=== PATIENT | male | born 1945 | race African-American/Black ===

== ENCOUNTER 2017-01-17 22:48 | Emergency (ER) | payer BC, MEDICARE ==
[2017-01-17 23:44] LABS: #Eosinphils 0.1 thou/uL (0.0-0.7); #Lymphocytes 0.8 thou/uL (1.20-3.40); #Monocytes 0.5 thou/uL (0.11-0.59); #Neutrophils 2.7 thou/uL (1.40-6.50); %Basophils 0.2 % (0.0-1.0); %Eosinophils 1.4 % (0.0-10.0); %Lymphocytes 20.4 % (21.0-51.0); %Monocytes 12.9 % (0.0-10.0); Hematocrit 35.1 % (42.0-52.0); Mean Platelet Volume 5.3 fL (7.4-10.4); Red Blood Cell (RBC) Count 3.46 mill/uL (4.70-6.10); White Blood Cell (WBC) Count 4.1 thou/uL (4.8-10.8)
[2017-01-17 23:52] LABS: Prothrombin Time 24.8 SEC (12.0-14.7)
[2017-01-18 00:04] LABS: Bilirubin Negative (Negative); Blood, Urine Large (Negative); Glucose, Urine (Dipstick) Negative (Negative); Ketone, Urine Negative (Negative); Nitrite Negative (Negative); Protein, Urine (Dipstick) Negative (Neg-Trace); Urobilinogen 0.2 mg/dL (0.2-1.0)
[2017-01-18 00:06] LABS: ALT (SGPT) 13 U/L (8-55); AST (SGOT) 21 U/L (5-34); Alkaline Phosphatase 109 U/L (40-150); Anion Gap 11 mmol/L (10-20); BUN (Urea Nitrogen) 7 mg/dL (8.4-25.7); Bilirubin, Total 0.4 mg/dL (0.2-1.2); Calc. Creatinine Clearance 0 mL/min (70-130); Calcium 9.2 mg/dL (7.8-10.44); Carbon Dioxide 27 mmol/L (23-31); Chloride 95 mmol/L (98-107); Estimated GFR-MDRD Greater than 90; Globulin 3.6 g/dL (2.4-3.5); Protein, Total 7.3 g/dL (5.8-8.1)
[2017-01-18 00:07] LABS: Bacteria/HPF None Seen HPF (None Seen); Hyaline Casts/LPF 0-3 HYALINE CAST LPF (0-3 Hyaline); Squamous Epithelial None Seen HPF (0-3); WBC/HPF None Seen HPF (0-3)
== END 2017-01-18 01:33 | disposition home or self-care (01) ==
LOC: ERS 22:48
DX: R31.9 Hematuria, unspecified (principal); I48.91 Unspecified atrial fibrillation; E78.5 Hyperlipidemia, unspecified; I10 Essential (primary) hypertension; I20.9 Angina pectoris, unspecified; F41.9 Anxiety disorder, unspecified; F32.9 Major depressive disorder, single episode, unspecified; Z86.718 Personal history of other venous thrombosis and embolism
CPT/HCPCS: 36415; 80053; 81003; 81015; 85025; 85610; 85730; 99283

== ENCOUNTER 2017-11-12 18:36 | Inpatient (IN) | payer OTHER, MEDICARE ==
[2017-11-12 23:48] LABS: #Lymphocytes 0.8 thou/uL (1.20-3.40); #Neutrophils 5.6 thou/uL (1.40-6.50); %Basophils 0.1 % (0.0-1.0); %Eosinophils 0.2 % (0.0-10.0); %Monocytes 13.8 % (0.0-10.0); %Neutrophils 74.9 % (42.0-75.0); Hemoglobin 11.2 g/dL (14.0-18.0); Mean Corpuscular HGB CONC 33.3 g/dL (32.0-36.0); Mean Corpuscular Hemoglobin 31.3 pg (27.0-31.0); Mean Corpuscular Volume 93.8 fL (78.0-98.0); Mean Platelet Volume 5.1 fL (7.4-10.4); Platelet Count 270 thou/uL (130-400); RBC Distribution Width 12.4 % (11.5-14.5); Red Blood Cell (RBC) Count 3.57 mill/uL (4.70-6.10); White Blood Cell (WBC) Count 7.5 thou/uL (4.8-10.8)
[2017-11-12 23:56] LABS: INR-International Normal Ratio 3.7; PTT 56.7 SEC (22.9-36.1); Prothrombin Time 36.3 SEC (12.0-14.7)
[2017-11-13 00:14] LABS: ALT (SGPT) 25 U/L (8-55); AST (SGOT) 67 U/L (5-34); Alkaline Phosphatase 389 U/L (40-150); Anion Gap 16 mmol/L (10-20); BUN (Urea Nitrogen) 11 mg/dL (8.4-25.7); Bilirubin, Total 1.2 mg/dL (0.2-1.2); Calc. Creatinine Clearance 0 mL/min (70-130); Calcium 9.9 mg/dL (7.8-10.44); Carbon Dioxide 24 mmol/L (23-31); Chloride 92 mmol/L (98-107); Estimated GFR-MDRD Greater than 90; Globulin 4.7 g/dL (2.4-3.5); Glucose 108 mg/dL (80-115); Potassium 4.5 mmol/L (3.5-5.1); Protein, Total 8.7 g/dL (5.8-8.1); Sodium 127 mmol/L (136-145)
[2017-11-13 00:19] LABS: CKMB 0.5 ng/mL (0-6.6); Troponin I Less than 0.010 ng/mL (< 0.028)
[2017-11-13] MEDS ORDERED: Morphine 4 MG/ML VIAL ONE (00:20)
[2017-11-13] MEDS ORDERED: Ondansetron ODT 4 MG TAB ONE (00:20)
[2017-11-13] MEDS ORDERED: Sodium Chloride 0.9% 100 ML ONE (00:29)
[2017-11-13] MEDS ORDERED: Piperacillin/Tazobactam 4.5 GM VIAL ONE (00:29)
[2017-11-13 01:46] LABS: Bilirubin Negative (Negative); Blood, Urine Moderate (Negative); Clarity CLEAR (Clear); Glucose, Urine (Dipstick) Negative (Negative); Leukocyte Negative (Negative); Nitrite Negative (Negative); Protein, Urine (Dipstick) Negative (Neg-Trace); pH, Urine 6.5 (5.0-9.0)
[2017-11-13 01:48] LABS: Bacteria/HPF None Seen HPF (None Seen); Hyaline Casts/LPF 0-3 HYALINE CAST LPF (0-3 Hyaline); Pathc Cast-AUWi Flag 0.14 (0-2.49); Squamous Epithelial 0-3 HPF (0-3); WBC/HPF None Seen HPF (0-3)
[2017-11-13 05:30] VITALS: BMI 24.2
[2017-11-13] MEDS ORDERED: Ondansetron HCl/PF 4 MG/2 ML Vial IVP PRN (05:45)
[2017-11-13] MEDS ORDERED: Acetaminophen 325 MG TAB PO PRN ×2 (05:45→18:19)
[2017-11-13] MEDS ORDERED: Ondansetron ODT 4 MG TAB SL PRN (05:45)
[2017-11-13 08:32] LABS: Prothrombin Time 41.2 SEC (12.0-14.7)
[2017-11-13 08:49] LABS: INR-International Normal Ratio 4.3
[2017-11-13] MEDS ORDERED: VANCOMYCIN IVPB PRN (09:28)
--- NOTE | 2017-11-13 09:52 | PDOC.EVN ---
Event Note - Event Note Event Note: H&P [id number]
--- NOTE | 2017-11-13 09:54 | CT ---
PRELIMINARY REPORT/[facility]/EMERGENTY AFTER-HOURS PROCEDURE CT Abdomen and Pelvis With Intravenous Contrast CLINICAL HISTORY: 72 years old, male; Pain; Abdominal pain; HX a-fib, prostate ca, HX RLE DVT, IVC filter, chronic coum cami use presents for continued bleeding from injection site. Pt received injection earlier today, thompson s had a steady ooze of blood from the site since. TECHNIQUE: Axial computed tomography images of the abdomen and pelvis with intravenous contrast. Coronal reformatted images were created and reviewed. COMPARISON: No relevant prior studies available. FINDINGS: Lung bases: Unremarkable. No mass. No consolidation. Heart: Trace anterior pericardial fluid. ABDOMEN: Liver: Unremarkable. No mass. Gallbladder and bile ducts: Unremarkable. No calcified stones. No ductal dilation. Pancreas: Unremarkable. No mass. No ductal dilation. Spleen: Unremarkable. No splenomegaly. Adrenals: Unremarkable. No mass. Kidneys and ureters: Left renal cyst. No hydronephrosis. Stomach and bowel: Unremarkable. No obstruction. No mucosal thickening. PELVIS: Appendix: No findings to suggest acute appendicitis. Bladder: Unremarkable. No mass. Reproductive: Prostate gland is normal in size. ABDOMEN and PELVIS: Intraperitoneal space: Unremarkable. No free air. No significant fluid collection. Bones/joints: Scattered blastic lesions within the skeleton consistent with metastatic disease in thi s patient with history of prostate carcinoma. No acute fracture. No dislocation. Soft tissues: Gynecomastia. Vasculature: IVC filter. No abdominal aortic aneurysm. Lymph nodes: Unremarkable. No enlarged lymph nodes. Other findings: No focal hematoma. IMPRESSION: 1. No focal hematoma. 2. Scattered blastic lesions within the skeleton consistent with metastatic disease in this patient w ith history of prostate carcinoma. Thank you for allowing us to participate in the care of your patient. Dictated and Authenticated by: Mike Sanchez MD 11/13/2017 3:28 AM Central Time ([place] & [place]) FINAL REPORT EMERGENT AFTER HOURS CT ABDOMEN AND PELVIS WITH IV CONTRAST: DATE: 11/13/17. HISTORY: Abdominal pain. History of prostate cancer. History of right lower extremity DVT. COMPARISON: 12/21/15. IMPRESSION: 1. Worsening osseous metastatic disease with greater involvement of the pelvis with scattered sclero tic osseous metastatic lesion within the spine which have also increased. 2. Bilateral gynecomastia. 3. Patchy parenchymal changes of right lung base, probably related to atelectasis. 4. Left renal cyst stable from prior exam. 5. Inferior vena cava filter unchanged in position. 6. Vascular calcifications of abdominal aorta. 7. Trace pericardial effusion versus pericardial thickening. 8. No acute intraabdominal findings are seen. 9. Findings are in agreement with the preliminary report by [facility]. POS: [facility]
[2017-11-13 10:54] LABS: Anion Gap 11 mmol/L (10-20); BUN (Urea Nitrogen) 8 mg/dL (8.4-25.7); Calc. Creatinine Clearance 86 mL/min (70-130); Carbon Dioxide 23 mmol/L (23-31); Chloride 100 mmol/L (98-107); Estimated GFR-MDRD Greater than 90; Glucose 93 mg/dL (80-115); Sodium 130 mmol/L (136-145)
[2017-11-13] MEDS: Sodium Chloride 0.9% 1,000 ML IV SCH (11:00)
[2017-11-13] MEDS ORDERED: ISOVUE-370 76%-LOCM 1 ML ONE (11:19)
--- NOTE | 2017-11-13 11:30 | HP ---
PRIMARY CARE PHYSICIAN: Dr. Robbin San. CHIEF COMPLAINT: Right lower leg pain. HISTORY OF PRESENT ILLNESS: This is a 72-year-old male with a known history of right lower extremity deep vein thrombosis status post IVC filter on Coumadin, who presents with a chief complaint of righ t thigh and knee pain along with secondary complaints of temperature and continued oozing from abdomi nal injection site. At the time of my evaluation, the patient's primary concern is his left thigh pain. He states that h e fell approximately 2 weeks ago and has been persistently painful, described as an aching sensation that waxes and wanes and is worse with any type of movement. He endorses pain directly in his thigh without involvement of his hip or his knee. The pain is most improved at rest and worse with any sor t of movement in any direction. The patient also endorses having some increased bleeding from an injection site, which he denies havi ng had any prior similar issues before. He also recalls a "high" INR for approximately the last 3-4 weeks. He denies any prior issues with persistently elevated INRs and denies any change in his home medication regimen system. The patient is noted to have fever of 101, 101.9 noted in the ER report. However, he denies any subjective fevers and chills. In the emergency department, it appears that he underwent a CT of the abdomen and pelvis due to findi ngs of abdominal tenderness on ER physical examination. He has also been given Zosyn and vancomycin in the emergency department. REVIEW OF SYSTEMS: Constitutional: No significant weight gain or weight loss over the last 2 months . No subjective fevers or chills, although he had an observed fever in the emergency department up t o 101.9 per the ER record. HEENT: No new headaches, dizziness, lightheadedness. Cardiovascular: D enies any chest pain, chest pressure, diaphoretic episodes, left-sided arm numbness or tingling. Res piratory: Denies any shortness of breath, cough, congestion, difficulty breathing. Gastrointestinal : Denies any nausea, vomiting, abdominal pain. Denies any issues with diarrhea. Genitourinary: De nies any dysuria, changes in urinary frequency, quality, color or quantity. Musculoskeletal: As not ed above. The remainder of the review of systems otherwise negative. PAST MEDICAL HISTORY: As per above, 1. Right lower extremity deep venous thrombosis with IVC filter to prevent further blood clots. 2. History of prostate cancer treated with radiation, last treatment in 2011. 3. Atrial fibrillation. 4. Hyperlipidemia. 5. Coronary artery disease. 6. Hypertension. 7. Anxiety and depression. 8. Status post IVC filter placement. HOME MEDICATIONS: Seems to include simvastatin 20 mg p.o. daily, doxazosin 2 mg p.o. daily, warfarin 5 mg p.o. daily, omeprazole 40 mg p.o. daily, mirtazapine 30 mg p.o. daily at bedtime, alprazolam 0. 25 mg p.o. t.i.d. ALLERGIES: Include CODEINE, which causes hives. PHYSICAL EXAMINATION: VITAL SIGNS: Notable for temperature in the Emergency Department, there was one documented at 101.9 and another documented at 101.4. GENERAL: The patient is awake, alert, appropriate, appears to be a reasonable historian, although no t all details are particularly clear. HEENT: Normocephalic, atraumatic. Slightly dry mucous membranes. Equal ocular motions are intact. CARDIOVASCULAR: S1, S2. No murmurs, rubs or gallops. Pulses 2+ bilateral upper extremities. Trace bilateral pitting pedal edema. RESPIRATORY: Reasonable air movement. No wheezes, rales or rhonchi. No conversational dyspnea. Gr ossly clear to auscultation. ABDOMEN: Positive bowel sounds, soft, slightly tender to palpation throughout, worse particularly burroughs rrounding his "oozing" right lower quadrant injection site which is currently covered with gauze that is soaked through with serosanguineous fluid, but no purulent drainage observed. MUSCULOSKELETAL: Able to move bilateral upper extremities without difficulty. He is to be able to m ove the right lower extremity, movement is limited by discomfort which is described in the HPI. LABORATORY DATA AND IMAGING: EKG in the emergency department demonstrating heart rate of 85, normal sinus rhythm per the ER report, I am unable to review this myself and has a pending CT of the abdomen and pelvis. WBC 7.5, hemoglobin 11.2, hematocrit 33.5, platelets of 270. PT of 36.3, INR of 3.7, s ubsequent INR of 4.3. Sodium 127, potassium 4.5, chloride 95, bicarbonate 24, BUN 11, creatinine 0.9 5, glucose 108, lactic acid 1.2, calcium 9.9. Total bilirubin is 1.2, AST 67, ALT 25, alkaline phosp hatase 389, troponin less than 0.01. Total protein 8.7, albumin 4.0. UA is significant for trace ke tones, moderate blood. Follow up H&H is 10.0 and 29.8. ASSESSMENT AND PLAN: A 72-year-old male presenting with a chief complaint to him of right lower extr emity pain. 1. Right thigh discomfort in a patient with an elevated INR and status post fall with pain in his ri ght thigh. We would consider further imaging for a variety of issues including the possibility of a progressive deep venous thrombosis, fracture, hematoma. The patient states that he has had imaging b efore, but I do not see any from this acute visit. We will start with x-ray, plain film of the right femur and repeat venous Doppler ultrasound. Also, concern if there is a history of trauma, the poss ibility of a deep lying abscess; however, we will start with initial evaluation as noted above. 2. Elevated INR with an oozing site. The patient is anticoagulated, presumably for deep venous thro mbosis presence. We will hold on his warfarin. There are no overt signs or symptoms of hemorrhage a t this point in time, we will trend serial H&H. Maintain a close eye on vital signs as well. 3. Supratherapeutic INR. We will hold the patient's warfarin for the time being. With empiric anti biotics, concern is that may have interactions that precipitate a variable INR. 4. Sepsis with elevated temperature on presentation. Empiric antibiotics with vancomycin and Zosyn. Source is unclear, pending CT of the abdomen and pelvis. The patient does have some abdominal find ings along with a right lower extremity finding. Please see the evaluation as per above. 5. Alkaline phosphatase. We will check a GGT to see if this is predominantly intra-abdominal or per haps skeletal in the etiology. Abdomen and pelvis CT as noted above. If any suspicion for gallbladd er involvement, we will pursue further imaging at that point in time. 6. History of malignancy with primary prostate cancer. Continue to monitor. 7. Hypertension. Continue to monitor. 8. Hyperlipidemia. Continue to monitor. 9. Anxiety and depression. Continue home regimen and close monitoring. 10. Hyponatremia with a grossly preserved mentation. We will continue to monitor. Recheck a BMP. 11. Activity as tolerated. Physical therapy consultation. 12. Diet: Cardiac, as tolerated. 13. Deep venous thrombosis prophylaxis. The patient is currently with a pharmacologically suprather apeutic INR. We will hold on pharmacological prophylaxis. if no persistent deep venous throm bosis noted on lower extremity ultrasound. Thank you for asking me to care for the patient. He is admitted inpatient FULL CODE.
[2017-11-13 11:57] LABS: Band 1 % (5-11); Hemoglobin 10.3 g/dL (14.0-18.0); Lymphocytes 16 % (21-51); MDiff Complete? YES; Mean Corpuscular HGB CONC 34.2 g/dL (32.0-36.0); Mean Corpuscular Hemoglobin 31.8 pg (27.0-31.0); Mean Platelet Volume 5.3 fL (7.4-10.4); Metamyelocyte 2 % (0-0); Monocytes 8 % (0-10); Neutrophil 68 % (42-75); PLT Morphology Comment Appears Decreased; Platelet Count 273 thou/uL (130-400); RBC Distribution Width 12.3 % (11.5-14.5); RBC Morphology Normal; Reactive Lymphocytes 4 % (0-10); Red Blood Cell (RBC) Count 3.23 mill/uL (4.70-6.10)
[2017-11-13] MEDS: Vancomycin HCl 1 GM in Premix Bag 1 BAG IVPB SCH (12:39)
--- NOTE | 2017-11-13 12:47 | ULT ---
RIGHT LOWER EXTREMITY VENOUS DOPPLER WITH SPECTRAL ANALYSIS AND COLOR-FLOW EVALUATION: 11/13/2017 HISTORY: Known right lower extremity DVT. Evaluate for progression. TECHNIQUE: Fay-scale, color-flow, Doppler evaluation, and spectral analysis of the right lower extremity venous structures is performed with 2D imaging. The right lower extremity common femoral, superficial femo ral, popliteal, posterior tibial, most proximal greater saphenous, and profunda femoral veins are maribell ged. FINDINGS: There is decreased lumen compressibility involving the mid and distal superficial femoral veins with echogenic material seen predominantly in the region of the junction of the mid and distal superficial femoral veins, compatible with thrombus. There is diminished flow within the superficial femoral ve ins bilaterally. There is otherwise normal flow and lumen compressibility involving the remaining visualized deep veno us structures of the right lower extremity. IMPRESSION: Nonocclusive deep venous thrombosis in the mid and distal right superficial femoral veins, but there is diminished flow within these veins. The above findings were discussed with Aiden, the RN on the hospital floor, at 1138 hours, on this da te (11/13/2017), by Noreen, the extractions technologist. CODE CR POS: [facility]
[2017-11-13] MEDS: ALPRAZolam 0.25 MG TAB PO SCH ×2 (14:48→20:13)
[2017-11-13 18:00] LABS: Anion Gap 9 mmol/L (10-20); BUN (Urea Nitrogen) 10 mg/dL (8.4-25.7); Calc. Creatinine Clearance 92 mL/min (70-130); Calcium 9.1 mg/dL (7.8-10.44); Carbon Dioxide 27 mmol/L (23-31); Chloride 98 mmol/L (98-107); Estimated GFR-MDRD Greater than 90; Glucose 100 mg/dL (80-115); Potassium 3.9 mmol/L (3.5-5.1); Sodium 130 mmol/L (136-145)
[2017-11-13] MEDS: Acetaminophen 325 MG TAB PO PRN (18:33)
[2017-11-13 18:59] LABS: Eosinophils 3 % (0-10); Hemoglobin 9.4 g/dL (14.0-18.0); Lymphocytes 6 % (21-51); MDiff Complete? YES; Mean Corpuscular HGB CONC 34.1 g/dL (32.0-36.0); Mean Corpuscular Volume 93.9 fL (78.0-98.0); Monocytes 7 % (0-10); Neutrophil 82 % (42-75); PLT Morphology Comment Appears Adequate; Platelet Count 242 thou/uL (130-400); Polychromasia SLIGHT = 2-3 cells (100X) (0-2/hpf); RBC Distribution Width 12.4 % (11.5-14.5); Red Blood Cell (RBC) Count 2.92 mill/uL (4.70-6.10); White Blood Cell (WBC) Count 5.7 thou/uL (4.8-10.8)
--- NOTE | 2017-11-13 19:45 | RAD ---
RIGHT FEMUR TWO VIEWS: 11/13/17 HISTORY: Mechanical fall. Evaluate for fracture. COMPARISON: None. Correlation made with a CT from 11/13/17 at 1:30 a.m. FINDINGS: Two views right femur: No fracture. No cortical irregularity or periosteal reaction. Mild bone demineralization. Vascular ca lcifications are noted. IMPRESSION: No fracture. POS: [facility]
[2017-11-13] MEDS: Doxazosin 2 MG TAB PO SCH (20:13)
[2017-11-13] MEDS: Mirtazapine 30 MG TAB PO SCH (20:13)
[2017-11-14] MEDS: Sodium Chloride 0.9% 1,000 ML IV SCH ×3 (01:12→20:28)
[2017-11-14] MEDS: Acetaminophen 325 MG TAB PO PRN ×3 (01:12→15:03)
[2017-11-14] MEDS: Vancomycin HCl 1 GM in Premix Bag 1 BAG IVPB SCH (01:12)
[2017-11-14 04:49] LABS: INR-International Normal Ratio 3.2; Prothrombin Time 32.9 SEC (12.0-14.7)
[2017-11-14 04:57] LABS: Anion Gap 10 mmol/L (10-20); BUN (Urea Nitrogen) 8 mg/dL (8.4-25.7); Calc. Creatinine Clearance 92 mL/min (70-130); Calcium 8.9 mg/dL (7.8-10.44); Carbon Dioxide 26 mmol/L (23-31); Chloride 100 mmol/L (98-107); Estimated GFR-MDRD Greater than 90; Glucose 112 mg/dL (80-115); Potassium 3.8 mmol/L (3.5-5.1); Sodium 132 mmol/L (136-145)
[2017-11-14 05:13] LABS: Band 2 % (5-11); Eosinophils 5 % (0-10); Hemoglobin 8.7 g/dL (14.0-18.0); Lymphocytes 16 % (21-51); MDiff Complete? YES; Mean Corpuscular HGB CONC 34.2 g/dL (32.0-36.0); Mean Corpuscular Volume 93.8 fL (78.0-98.0); Monocytes 16 % (0-10); Neutrophil 61 % (42-75); PLT Morphology Comment Appears Adequate; Platelet Count 220 thou/uL (130-400); RBC Distribution Width 12.3 % (11.5-14.5); Red Blood Cell (RBC) Count 2.72 mill/uL (4.70-6.10); White Blood Cell (WBC) Count 5.4 thou/uL (4.8-10.8)
[2017-11-14 09:21] LABS: #Eosinphils 0.1 thou/uL (0.0-0.7); #Lymphocytes 0.6 thou/uL (1.20-3.40); #Monocytes 0.7 thou/uL (0.11-0.59); #Neutrophils 3.7 thou/uL (1.40-6.50); %Basophils 0.1 % (0.0-1.0); %Eosinophils 1.2 % (0.0-10.0); %Lymphocytes 11.1 % (21.0-51.0); %Monocytes 13.8 % (0.0-10.0); %Neutrophils 73.9 % (42.0-75.0); Hemoglobin 8.7 g/dL (14.0-18.0); Mean Corpuscular HGB CONC 32.8 g/dL (32.0-36.0); Mean Corpuscular Hemoglobin 31.1 pg (27.0-31.0); Mean Corpuscular Volume 94.6 fL (78.0-98.0); Mean Platelet Volume 5.1 fL (7.4-10.4); Platelet Count 218 thou/uL (130-400); RBC Distribution Width 12.3 % (11.5-14.5); Red Blood Cell (RBC) Count 2.81 mill/uL (4.70-6.10)
[2017-11-14] MEDS: ALPRAZolam 0.25 MG TAB PO SCH ×3 (09:31→20:26)
[2017-11-14 09:53] LABS: Anion Gap 9 mmol/L (10-20); BUN (Urea Nitrogen) 7 mg/dL (8.4-25.7); Calc. Creatinine Clearance 92 mL/min (70-130); Calcium 8.9 mg/dL (7.8-10.44); Carbon Dioxide 27 mmol/L (23-31); Chloride 102 mmol/L (98-107); Estimated GFR-MDRD Greater than 90; Glucose 122 mg/dL (80-115); Potassium 3.5 mmol/L (3.5-5.1); Sodium 134 mmol/L (136-145)
[2017-11-14 13:44] LABS: Vancomycin, Trough 11.3 ug/mL
[2017-11-14] MEDS: Vancomycin HCl 1.5 GM in Sodium Chloride 0.9% 250 ML 300 ML IVPB SCH (14:57)
[2017-11-14 17:57] LABS: #Eosinphils 0.1 thou/uL (0.0-0.7); #Lymphocytes 0.7 thou/uL (1.20-3.40); #Monocytes 0.6 thou/uL (0.11-0.59); #Neutrophils 3.9 thou/uL (1.40-6.50); %Basophils 0.2 % (0.0-1.0); %Eosinophils 1.6 % (0.0-10.0); %Lymphocytes 12.8 % (21.0-51.0); %Monocytes 11.9 % (0.0-10.0); %Neutrophils 73.6 % (42.0-75.0); Hemoglobin 9.7 g/dL (14.0-18.0); Mean Corpuscular HGB CONC 33.5 g/dL (32.0-36.0); Mean Corpuscular Hemoglobin 31.6 pg (27.0-31.0); Mean Corpuscular Volume 94.5 fL (78.0-98.0); Mean Platelet Volume 5.2 fL (7.4-10.4); Platelet Count 281 thou/uL (130-400); RBC Distribution Width 12.3 % (11.5-14.5); Red Blood Cell (RBC) Count 3.07 mill/uL (4.70-6.10); White Blood Cell (WBC) Count 5.2 thou/uL (4.8-10.8)
[2017-11-14 18:17] LABS: Anion Gap 11 mmol/L (10-20); BUN (Urea Nitrogen) 7 mg/dL (8.4-25.7); Calc. Creatinine Clearance 94 mL/min (70-130); Calcium 9.1 mg/dL (7.8-10.44); Carbon Dioxide 24 mmol/L (23-31); Chloride 101 mmol/L (98-107); Estimated GFR-MDRD Greater than 90; Glucose 112 mg/dL (80-115); Potassium 3.7 mmol/L (3.5-5.1); Sodium 132 mmol/L (136-145)
--- NOTE | 2017-11-14 18:36 | PDOC.PN ---
- Subjective Encounter Start Date: 11/14/17 Encounter Start Time: 09:00 Patient seen for followup re: sepsis. Denies chest pain, shortness of breath, fevers or chills. - Objective Resuscitation Status: Resuscitation Status FULL:Full Resuscitation MAR Reviewed: Yes Vital Signs & Weight: Vital Signs (12 hours) Temp Pulse Resp BP BP Pulse Ox 11/14/17 11:18 98.1 F 74 20 120/72 96 11/14/17 10:01 98.3 F 85 18 97 11/14/17 07:41 98.3 F 85 18 118/64 97 I&O: 11/13/17 11/14/17 11/15/17 06:59 06:59 06:59 Intake Total 1400 Balance 1400 Result Diagrams: 11/14/17 17:49 11/14/17 17:49 Additional Labs: Labs reviewed by me Phys Exam - Physical Examination Constitutional: NAD HEENT: moist MMs, sclera anicteric, oral pharynx no lesions, 2+ tonsils Neck: no nodes, no JVD, supple, full ROM Respiratory: no wheezing, no rales, no rhonchi, clear to auscultation bilateral Cardiovascular: RRR, no rub S1, S2 Gastrointestinal: soft, non-tender, no distention, positive bowel sounds Musculoskeletal: edema present Neurological: moves all 4 limbs Psychiatric: normal affect, A&O x 3 Dx/Plan (1) Sepsis Code(s): A41.9 - SEPSIS, UNSPECIFIED ORGANISM Status: Acute Comment: continue empiric IV antibiotics as below, await cultures (2) DVT (deep venous thrombosis) Code(s): I82.409 - ACUTE EMBOLISM AND THOMBOS UNSP DEEP VN UNSP LOWER EXTREMITY Status: Acute Comment: continue warfarin, pt also has IVC filter (3) Afib Code(s): I48.91 - UNSPECIFIED ATRIAL FIBRILLATION Status: Acute Comment: continue warfarin, coreg (4) Dyslipidemia Code(s): E78.5 - HYPERLIPIDEMIA, UNSPECIFIED Status: Acute (5) Prostate cancer metastatic to bone Code(s): C61 - MALIGNANT NEOPLASM OF PROSTATE; C79.51 - SECONDARY MALIGNANT NEOPLASM OF BONE Status: Chronic Comment: pt to followup with his oncologist in [place] (6) HTN (hypertension) Code(s): I10 - ESSENTIAL (PRIMARY) HYPERTENSION Status: Chronic Comment: controlled (7) CAD (coronary artery disease) Code(s): I25.10 - ATHSCL HEART DISEASE OF [place] CORONARY ARTERY W/O ANG PCTRS Status: Chronic Comment: stable - Plan * . Review of Systems - Review of Systems Constitutional: negative: fever, chills, sweats, weakness, malaise Respiratory: negative: Cough, Shortness of Breath, SOB with Excertion, Pleuritic Pain, Wheezing Cardiovascular: negative: chest pain, palpitations, orthopnea, paroxysmal nocturnal dyspnea, edema, light headedness Gastrointestinal: negative: Nausea, Vomiting, Abdominal Pain, Diarrhea, Constipation, Melena, Hematochezia Genitourinary: negative: Dysuria, Frequency, Incontinence, Hematuria, Retention Musculoskeletal: Other (R thigh pain) Skin: negative: Rash, Lesions, Vargas, Bruising - Medications/Allergies Allergies/Adverse Reactions: Allergies Allergy/AdvReac Type Severity Reaction Status Date / Time No Known Allergies Allergy Verified 12/20/15 23:14 Medications: Current Medications Acetaminophen (Tylenol) 650 mg PO Q4H PRN PRN Reason: Pain Last Admin: 11/14/17 15:03 Dose: 650 mg Alprazolam (Xanax) 0.25 mg PO TID [facility] Last Admin: 11/14/17 14:57 Dose: 0.25 mg Doxazosin Mesylate (Cardura) 2 mg PO HS [facility] Last Admin: 11/13/17 20:13 Dose: 2 mg Sodium Chloride (Normal Saline 0.9%) 1,000 mls @ 75 mls/hr IV .[id number] [facility] Last Admin: 11/14/17 15:00 Dose: 1,000 mls Vancomycin HCl 1.5 gm/ Sodium (Chloride) 300 mls @ 200 mls/hr IVPB 0200,1400 [facility] Last Admin: 11/14/17 14:57 Dose: 300 mls Mirtazapine (Remeron) 30 mg PO HS [facility] Last Admin: 11/13/17 20:13 Dose: 30 mg Miscellaneous Medication (Pharmacy To Dose) 1 each IVPB PRN PRN PRN Reason: Pharmacy to dose Pantoprazole Sodium (Protonix) 40 mg PO 2100 [facility] Last Admin: 11/13/17 20:13 Dose: 40 mg Sodium Chloride (Flush - Normal Saline) 10 ml IVF Q12HR [facility] Last Admin: 11/14/17 09:34 Dose: Not Given Sodium Chloride (Flush - Normal Saline) 10 ml IVF PRN PRN PRN Reason: Saline Flush Last Admin: 11/13/17 11:11 Dose: 10 ml
[2017-11-14] MEDS: Carvedilol 3.125 MG TAB PO SCH (20:26)
[2017-11-14] MEDS: Doxazosin 2 MG TAB PO SCH (20:27)
[2017-11-14] MEDS: Mirtazapine 30 MG TAB PO SCH (20:27)
[2017-11-14] MEDS: Simvastatin 20 MG TAB PO SCH (20:28)
[2017-11-15] MEDS: Vancomycin HCl 1.5 GM in Sodium Chloride 0.9% 250 ML 300 ML IVPB SCH ×2 (02:14→16:48)
[2017-11-15 02:28] LABS: Anion Gap 11 mmol/L (10-20); BUN (Urea Nitrogen) 6 mg/dL (8.4-25.7); Calc. Creatinine Clearance 99 mL/min (70-130); Calcium 8.8 mg/dL (7.8-10.44); Carbon Dioxide 25 mmol/L (23-31); Chloride 100 mmol/L (98-107); Estimated GFR-MDRD Greater than 90; Glucose 106 mg/dL (80-115); Potassium 3.5 mmol/L (3.5-5.1); Sodium 132 mmol/L (136-145)
[2017-11-15 03:08] LABS: Hemoglobin 8.9 g/dL (14.0-18.0); Mean Corpuscular Hemoglobin 31.4 pg (27.0-31.0); Mean Platelet Volume 5.5 fL (7.4-10.4); Platelet Count 261 thou/uL (130-400); RBC Distribution Width 12.3 % (11.5-14.5); Red Blood Cell (RBC) Count 2.82 mill/uL (4.70-6.10); White Blood Cell (WBC) Count 4.7 thou/uL (4.8-10.8)
[2017-11-15 03:34] LABS: INR-International Normal Ratio 2.1; Prothrombin Time 23.3 SEC (12.0-14.7)
[2017-11-15 03:51] LABS: Band 1 % (5-11); Eosinophils 1 % (0-10); Hypochromia SLIGHT = 6-15 cells (100X) (0-5/hpf); Lymphocytes 11 % (21-51); MDiff Complete? YES; Metamyelocyte 1 % (0-0); Monocytes 7 % (0-10); Neutrophil 79 % (42-75); PLT Morphology Comment Appears Adequate
[2017-11-15] MEDS: ALPRAZolam 0.25 MG TAB PO SCH ×3 (07:47→20:08)
[2017-11-15] MEDS: Carvedilol 3.125 MG TAB PO SCH ×2 (07:47→20:08)
[2017-11-15] MEDS: Acetaminophen 325 MG TAB PO PRN ×2 (07:50→20:10)
--- NOTE | 2017-11-15 11:19 | EKG ---
Test Reason : Blood Pressure : / mmHG Vent. Rate : 085 BPM Atrial Rate : 085 BPM P-R Int : 148 ms QRS Dur : 088 ms QT Int : 362 ms P-R-T Axes : 057 031 039 degrees QTc Int : 430 ms Normal sinus rhythm Normal ECG Confirmed by BURKE DAVID M.D. ([id number]), image editor LYUDMILA EDWARDS ([id number]) on 11/15/2017 11:18:50 AM Referred By: Confirmed By:BURKE DAVID M.D.
--- NOTE | 2017-11-15 11:19 | EKG ---
Test Reason : Blood Pressure : / mmHG Vent. Rate : 086 BPM Atrial Rate : 086 BPM P-R Int : 108 ms QRS Dur : 082 ms QT Int : 356 ms P-R-T Axes : 000 022 092 degrees QTc Int : 426 ms Sinus rhythm with short IL Abnormal ECG Will order repeat EKG No ST elevation/PA Confirmed by BURKE DAVID M.D. ([id number]), loan expeditor LYUDMILA EDWARDS ([id number]) on 11/15/2017 11:18:41 AM Referred By: Confirmed By:BURKE DAVID M.D.
[2017-11-15] MEDS ORDERED: Vancomycin HCl 1.5 GM in Sodium Chloride 0.9% 250 ML 300 ML IVPB SCH (16:00)
[2017-11-15] MEDS: Sodium Chloride 0.9% 1,000 ML IV SCH (16:44)
--- NOTE | 2017-11-15 16:49 | PDOC.PN ---
- Subjective Encounter Start Date: 11/15/17 Encounter Start Time: 10:20 Pt seen for followup re: sepsis. Denies chest pain, shortness of breath, fevers or chills. - Objective Resuscitation Status: Resuscitation Status FULL:Full Resuscitation MAR Reviewed: Yes Vital Signs & Weight: Vital Signs (12 hours) Temp Pulse Resp BP Pulse Ox 11/15/17 16:37 98.8 F 73 16 147/71 H 11/15/17 11:03 97.8 F 70 18 126/71 92 L 11/15/17 08:00 99.9 F H 85 16 96 11/15/17 07:35 99.9 F H 85 16 144/75 H 96 I&O: 11/14/17 11/15/17 11/16/17 06:59 06:59 06:59 Intake Total 1400 1010 Balance 1400 1010 Result Diagrams: 11/15/17 01:44 11/15/17 01:44 Additional Labs: Labs reviewed by me Phys Exam - Physical Examination Constitutional: NAD HEENT: moist MMs, sclera anicteric, oral pharynx no lesions, 2+ tonsils Neck: no nodes, no JVD, supple, full ROM Respiratory: no wheezing, no rales, no rhonchi, clear to auscultation bilateral Cardiovascular: RRR, no rub S1, S2 Gastrointestinal: soft, non-tender, no distention, positive bowel sounds Neurological: moves all 4 limbs Psychiatric: normal affect, A&O x 3 Dx/Plan (1) Sepsis Code(s): A41.9 - SEPSIS, UNSPECIFIED ORGANISM Status: Acute Comment: continue IV vancomycin, add Zosyn. Pt having low-grade fevers (2) DVT (deep venous thrombosis) Code(s): I82.409 - ACUTE EMBOLISM AND THOMBOS UNSP DEEP VN UNSP LOWER EXTREMITY Status: Acute Comment: continue warfarin per pharmacy service, pt also has IVC filter (3) Afib Code(s): I48.91 - UNSPECIFIED ATRIAL FIBRILLATION Status: Acute Comment: on warfarin, coreg (4) Dyslipidemia Code(s): E78.5 - HYPERLIPIDEMIA, UNSPECIFIED Status: Acute (5) Prostate cancer metastatic to bone Code(s): C61 - MALIGNANT NEOPLASM OF PROSTATE; C79.51 - SECONDARY MALIGNANT NEOPLASM OF BONE Status: Chronic Comment: pt to followup with his oncologist (6) HTN (hypertension) Code(s): I10 - ESSENTIAL (PRIMARY) HYPERTENSION Status: Chronic Comment: controlled (7) CAD (coronary artery disease) Code(s): I25.10 - ATHSCL HEART DISEASE OF [place] CORONARY ARTERY W/O ANG PCTRS Status: Chronic Comment: stable (8) Falls Code(s): W19.XXXA - UNSPECIFIED FALL, INITIAL ENCOUNTER Status: Chronic Comment: Pt reports recent falls, seen by PT - Plan * . Review of Systems - Review of Systems Constitutional: negative: fever, chills, sweats, weakness, malaise Respiratory: negative: Cough, Shortness of Breath, SOB with Excertion, Pleuritic Pain, Wheezing Cardiovascular: negative: chest pain, palpitations, orthopnea, paroxysmal nocturnal dyspnea, edema, light headedness Gastrointestinal: negative: Nausea, Vomiting, Abdominal Pain, Diarrhea, Constipation, Melena, Hematochezia Genitourinary: negative: Dysuria, Frequency, Incontinence, Hematuria, Retention Musculoskeletal: negative: Neck Pain, Shoulder Pain, Arm Pain, Back Pain, Hand Pain, Leg Pain, Foot Pain - Medications/Allergies Allergies/Adverse Reactions: Allergies Allergy/AdvReac Type Severity Reaction Status Date / Time No Known Allergies Allergy Verified 12/20/15 23:14 Medications: Current Medications Acetaminophen (Tylenol) 650 mg PO Q4H PRN PRN Reason: Pain Last Admin: 11/15/17 07:50 Dose: 650 mg Alprazolam (Xanax) 0.25 mg PO TID [facility] Last Admin: 11/15/17 16:44 Dose: 0.25 mg Carvedilol (Coreg) 3.125 mg PO BID [facility] Last Admin: 11/15/17 07:47 Dose: 3.125 mg Doxazosin Mesylate (Cardura) 2 mg PO HS [facility] Last Admin: 11/14/17 20:27 Dose: 2 mg Sodium Chloride (Normal Saline 0.9%) 1,000 mls @ 75 mls/hr IV .[id number] [facility] Last Admin: 11/15/17 16:44 Dose: Not Given Vancomycin HCl 1.5 gm/ Sodium (Chloride) 300 mls @ 200 mls/hr IVPB 0400,1600 [facility] Last Admin: 11/15/17 16:44 Dose: 300 mls Mirtazapine (Remeron) 30 mg PO HS [facility] Last Admin: 11/14/17 20:27 Dose: 30 mg Miscellaneous Medication (Pharmacy To Dose) 1 each IVPB PRN PRN PRN Reason: Pharmacy to dose Pantoprazole Sodium (Protonix) 40 mg PO 2100 [facility] Last Admin: 11/14/17 20:28 Dose: 40 mg Simvastatin (Zocor) 20 mg PO HS [facility] Last Admin: 11/14/17 20:28 Dose: 20 mg Sodium Chloride (Flush - Normal Saline) 10 ml IVF Q12HR [facility] Last Admin: 11/15/17 07:47 Dose: Not Given Sodium Chloride (Flush - Normal Saline) 10 ml IVF PRN PRN PRN Reason: Saline Flush Last Admin: 11/13/17 11:11 Dose: 10 ml
[2017-11-15] MEDS ORDERED: Piperacillin/Tazobactam 4.5 GM in Sodium Chloride 0.9% 100 ML IVPB SCH (18:00)
[2017-11-15] MEDS ORDERED: Warfarin Sodium 5 MG TAB PO SCH (18:00)
[2017-11-15] MEDS: Piperacillin/Tazobactam 4.5 GM in Sodium Chloride 0.9% 100 ML IVPB SCH (20:07)
[2017-11-15] MEDS: Simvastatin 20 MG TAB PO SCH (20:09)
[2017-11-15] MEDS: Doxazosin 2 MG TAB PO SCH (20:09)
[2017-11-15] MEDS: Mirtazapine 30 MG TAB PO SCH (20:09)
[2017-11-16] MEDS: Piperacillin/Tazobactam 4.5 GM in Sodium Chloride 0.9% 100 ML IVPB SCH ×2 (03:24→12:14)
[2017-11-16 03:35] LABS: Vancomycin, Trough 19.5 ug/mL
[2017-11-16 03:49] LABS: INR-International Normal Ratio 1.8
[2017-11-16] MEDS: Vancomycin HCl 1.25 GM in Sodium Chloride 0.9% 250 ML 250 ML IVPB SCH ×2 (04:20→16:03)
[2017-11-16] MEDS: Sodium Chloride 0.9% 1,000 ML IV SCH ×2 (04:21→20:37)
[2017-11-16] MEDS: ALPRAZolam 0.25 MG TAB PO SCH ×3 (08:38→20:40)
[2017-11-16] MEDS: Carvedilol 3.125 MG TAB PO SCH ×2 (08:39→20:40)
[2017-11-16] MEDS: Acetaminophen 325 MG TAB PO PRN ×2 (08:44→20:42)
--- NOTE | 2017-11-16 16:03 | PDOC.PN ---
- Subjective Encounter Start Date: 11/16/17 Encounter Start Time: 09:20 Pt seen for followup re: sepsis. Denies chest pain, shortness of breath, fevers or chills. - Objective Resuscitation Status: Resuscitation Status FULL:Full Resuscitation MAR Reviewed: Yes Vital Signs & Weight: Vital Signs (12 hours) Temp Pulse Resp BP Pulse Ox 11/16/17 08:00 98.0 F 84 18 94 L 11/16/17 07:26 98.0 F 84 18 121/70 94 L I&O: 11/15/17 11/16/17 11/17/17 06:59 06:59 06:59 Intake Total 1010 1078 480 Output Total 920 Balance 1010 158 480 Result Diagrams: 11/15/17 01:44 11/15/17 01:44 Additional Labs: Labs reviewed by me Phys Exam - Physical Examination Constitutional: NAD HEENT: moist MMs Neck: supple Respiratory: clear to auscultation bilateral Cardiovascular: RRR Gastrointestinal: soft Neurological: moves all 4 limbs Psychiatric: normal affect Dx/Plan (1) Sepsis Code(s): A41.9 - SEPSIS, UNSPECIFIED ORGANISM Status: Acute Comment: Final urine culture and preliminary blood cultures are negative. Discontinue antibiotics and observe. (2) DVT (deep venous thrombosis) Code(s): I82.409 - ACUTE EMBOLISM AND THOMBOS UNSP DEEP VN UNSP LOWER EXTREMITY Status: Acute Comment: warfarin per pharmacy service, pt also has IVC filter (3) Afib Code(s): I48.91 - UNSPECIFIED ATRIAL FIBRILLATION Status: Acute Comment: continue warfarin and coreg (4) Dyslipidemia Code(s): E78.5 - HYPERLIPIDEMIA, UNSPECIFIED Status: Chronic (5) Prostate cancer metastatic to bone Code(s): C61 - MALIGNANT NEOPLASM OF PROSTATE; C79.51 - SECONDARY MALIGNANT NEOPLASM OF BONE Status: Chronic Comment: pt to followup with his oncologist at [place] (6) HTN (hypertension) Code(s): I10 - ESSENTIAL (PRIMARY) HYPERTENSION Status: Chronic Comment: controlled (7) CAD (coronary artery disease) Code(s): I25.10 - ATHSCL HEART DISEASE OF [place] CORONARY ARTERY W/O ANG PCTRS Status: Chronic Comment: stable (8) Falls Code(s): W19.XXXA - UNSPECIFIED FALL, INITIAL ENCOUNTER Status: Chronic Comment: Pt reports recent falls, seen by PT - Plan * . Review of Systems - Medications/Allergies Allergies/Adverse Reactions: Allergies Allergy/AdvReac Type Severity Reaction Status Date / Time No Known Allergies Allergy Verified 12/20/15 23:14 Medications: Current Medications Acetaminophen (Tylenol) 650 mg PO Q4H PRN PRN Reason: Pain Last Admin: 11/16/17 08:44 Dose: 650 mg Alprazolam (Xanax) 0.25 mg PO TID [facility] Last Admin: 11/16/17 16:03 Dose: 0.25 mg Carvedilol (Coreg) 3.125 mg PO BID [facility] Last Admin: 11/16/17 08:39 Dose: 3.125 mg Doxazosin Mesylate (Cardura) 2 mg [address] [facility] Last Admin: 11/15/17 20:09 Dose: 2 mg Sodium Chloride (Normal Saline 0.9%) 1,000 mls @ 75 mls/hr IV .[id number] [facility] Last Admin: 11/16/17 04:21 Dose: 1,000 mls Piperacillin Sod/Tazobactam (Sod 4.5 gm/ Sodium Chloride) 100 mls @ 200 mls/hr IVPB 0400,1200,2000 [facility] Last Admin: 11/16/17 12:14 Dose: 100 mls Vancomycin HCl 1.25 gm/ Sodium (Chloride) 250 mls @ 166.667 mls/hr IVPB 0400, 1600 [facility] Last Admin: 11/16/17 16:03 Dose: 250 mls Mirtazapine (Remeron) 30 mg PO [facility] Last Admin: 11/15/17 20:09 Dose: 30 mg Miscellaneous Medication (Pharmacy To Dose) 1 each IVPB PRN PRN PRN Reason: Pharmacy to dose Miscellaneous Medication (Pharmacy To Dose) 1 each PO ONE PRN PRN Reason: Pharmacy to dose Stop: 12/15/17 17:17 Pantoprazole Sodium (Protonix) 40 mg PO 2100 [facility] Last Admin: 11/15/17 20:09 Dose: 40 mg Simvastatin (Zocor) 20 mg PO [facility] Last Admin: 11/15/17 20:09 Dose: 20 mg Sodium Chloride (Flush - Normal Saline) 10 ml IVF Q12HR [facility] Last Admin: 11/16/17 08:38 Dose: Not Given Sodium Chloride (Flush - Normal Saline) 10 ml IVF PRN PRN PRN Reason: Saline Flush Last Admin: 11/13/17 11:11 Dose: 10 ml Warfarin Sodium (Coumadin) 4 mg PO 1700 [facility]
[2017-11-16] MEDS: Warfarin Sodium 2 MG TAB PO SCH (16:06)
[2017-11-16] MEDS ORDERED: Warfarin Sodium 5 MG TAB PO SCH (17:00)
[2017-11-16] MEDS: Simvastatin 20 MG TAB PO SCH (20:41)
[2017-11-16] MEDS: Mirtazapine 30 MG TAB PO SCH (20:41)
[2017-11-16] MEDS: Doxazosin 2 MG TAB PO SCH (20:41)
[2017-11-17] MEDS: Sodium Chloride 0.9% 1,000 ML IV SCH (05:28)
[2017-11-17 06:28] LABS: INR-International Normal Ratio 2.1; Prothrombin Time 23.6 SEC (12.0-14.7)
[2017-11-17] MEDS: ALPRAZolam 0.25 MG TAB PO SCH ×3 (08:32→20:26)
[2017-11-17] MEDS: Carvedilol 3.125 MG TAB PO SCH ×2 (08:32→20:26)
[2017-11-17] MEDS: Warfarin Sodium 2 MG TAB PO SCH (16:13)
[2017-11-17] MEDS: Acetaminophen 325 MG TAB PO PRN ×2 (16:13→20:27)
--- NOTE | 2017-11-17 19:05 | PDOC.PN ---
- Subjective Encounter Start Date: 11/17/17 Encounter Start Time: 18:50 Subjective: f/u for supratherapeutic INR on Coumadin now improved. RLE DVT on -: Coumadin. No new complaints. - Objective Resuscitation Status: Resuscitation Status FULL:Full Resuscitation MAR Reviewed: Yes Vital Signs & Weight: Vital Signs (12 hours) Temp Pulse Resp BP Pulse Ox 11/17/17 08:00 98.4 F 88 16 96 11/17/17 07:44 98.4 F 88 16 128/72 96 I&O: 11/16/17 11/17/17 11/18/17 06:59 06:59 06:59 Intake Total 1078 1490 Output Total 920 450 600 Balance 158 1040 -600 Result Diagrams: 11/15/17 01:44 11/15/17 01:44 Additional Labs: Microbiology 11/13/17 01:25 Urine voided Urine Culture - Final NO GROWTH AT 36 HOURS 11/12/17 23:36 Venous blood - Right Arm Blood Culture - Preliminary NO GROWTH AT 48 HOURS 11/12/17 23:36 Venous blood - Left Arm Blood Culture - Preliminary NO GROWTH AT 48 HOURS Laboratory Tests 11/14/17 11/15/17 11/16/17 04:24 01:44 02:58 INR 3.2 2.1 1.8 11/17/17 05:31 INR 2.1 Phys Exam - Physical Examination Constitutional: NAD HEENT: PERRLA, sclera anicteric, oral pharynx no lesions Neck: no nodes, no JVD, supple, full ROM Respiratory: no wheezing, no rales, no rhonchi, clear to auscultation bilateral S1, S2 Cardiovascular: RRR, no significant murmur, no rub, gallop Gastrointestinal: soft, non-tender, no distention, positive bowel sounds Musculoskeletal: no edema, pulses present Neurological: non-focal, normal sensation, moves all 4 limbs Psychiatric: normal affect Skin: no rash, normal turgor, cap refill <2 seconds Dx/Plan (1) Chronic anticoagulation Code(s): Z79.01 - GROUP HOME (CURRENT) USE OF ANTICOAGULANTS Status: Acute Comment: INR therapeutic currently, repeat INR in am, continue Coumadin (2) Afib Code(s): I48.91 - UNSPECIFIED ATRIAL FIBRILLATION Status: Acute Comment: Current SR, continue warfarin and coreg (3) DVT (deep venous thrombosis) Code(s): I82.409 - ACUTE EMBOLISM AND THOMBOS UNSP DEEP VN UNSP LOWER EXTREMITY Status: Acute Comment: Continue Coumadin, pt also has IVC filter (4) Falls Code(s): W19.XXXA - UNSPECIFIED FALL, INITIAL ENCOUNTER Status: Chronic Comment: Pt reports recent falls, HH with PT on d/c (5) HTN (hypertension) Code(s): I10 - ESSENTIAL (PRIMARY) HYPERTENSION Status: Chronic Comment: Stable, continue routine anti-hypertensive regimen - Plan PT/OT, social services manager, out of bed/ambulate, DVT proph w/SCDs Stable overall -: Saline Lock IVF's -: OOB with PT -: Continue Coreg 3.125mg BID -: AM lab: PT/INR * Likely home in 24h
[2017-11-17] MEDS: Doxazosin 2 MG TAB PO SCH (20:26)
[2017-11-17] MEDS: Mirtazapine 30 MG TAB PO SCH (20:26)
[2017-11-17] MEDS: Simvastatin 20 MG TAB PO SCH (20:26)
[2017-11-18 05:13] LABS: INR-International Normal Ratio 2.1; Prothrombin Time 23.4 SEC (12.0-14.7)
[2017-11-18] MEDS: Carvedilol 3.125 MG TAB PO SCH (08:26)
[2017-11-18] MEDS: ALPRAZolam 0.25 MG TAB PO SCH ×2 (08:26→16:05)
[2017-11-18] MEDS: Acetaminophen 325 MG TAB PO PRN (13:01)
[2017-11-18] MEDS: Warfarin Sodium 2 MG TAB PO SCH (16:06)
[2017-11-18 16:31] VITALS: BP 155/84; TEMP 98.5
--- NOTE | 2017-11-19 00:54 | DIS ---
DATE OF ADMISSION: 11/13/2017 DATE OF DISCHARGE: 11/18/2017 DISCHARGE DIAGNOSES: 1. Right lower extremity deep venous thrombosis, on chronic Coumadin therapy. 2. Status post IVC filter placement. 3. Chronic atrial fibrillation with chronic Coumadin therapy. 4. History of falls. CONSULTATIONS: None. PERTINENT LABORATORY AND X-RAY FINDINGS: Sodium ranged between 127 to 134, AST 67, ALT 25, alkaline phosphatase 389. Lactic acid level 1.2. CBC showed a white blood cell count ranging between 4.7 to 7, hemoglobin ranging between 8.7 to 10.3. PT 23.4, INR 2.1 on 11/18/2017. Blood cultures x2 from 0 11/12/2017 showed no growth at 5 days. Urine culture dated 11/13/2017 showed no growth at [address] of the abdomen and pelvis dated 11/13/2017 showed metastatic disease noted involving the pelvis an d lumbar spine in the context of known metastatic prostate carcinoma. Inferior vena cava filter unch anged in position. No acute process identified. Two views of the right femur dated 11/13/2017 showe d no fracture or dislocation. Right lower extremity venous Doppler study dated 11/13/2017 showed non occlusive DVT in the mid and distal right superficial femoral veins. HOSPITAL COURSE: The patient was admitted to the medical floor after initially presenting with right lower leg pain in the context of known right lower extremity DVT, on chronic Coumadin therapy. The patient underwent extensive evaluation with multiple imaging modalities showing nonocclusive DVT of t he right lower extremity, nonacute. The patient was also noted with elevated INR of 4.3 at the time of admission and held on Coumadin therapy with serial INR monitoring showing overall improvement and stabilization of INR at a current value of 2.1 by the time of discharge. The patient was also initia lly suspected of underlying infectious process at the time of admission with a fever and mild leukocy tosis; however, no specific etiology or organism was identified. The patient was placed on empiric I V antibiotic therapy including vancomycin and Zosyn; however, this was discontinued as no clear sourc e of infectious process was identified. Overall, the patient remained clinically stable during the h ospital course. The patient underwent evaluation by the physical therapy service due to history of f alls, ambulating up to 400 feet without difficulty. Current recommendations are ongoing outpatient c onsideration for physical therapy; however, the patient is not currently homebound. I have examined the patient at the time of discharge and discussed followup instructions, at which point, the patient verbalized understanding and agreement. The patient is ready for discharge on 11/18/2017. DISCHARGE MEDICATIONS: 1. Zytiga 1000 mg p.o. daily. 2. Xanax 0.25 mg p.o. t.i.d. 3. Enteric-coated aspirin 81 mg p.o. daily. 4. Coreg 3.125 mg p.o. b.i.d. 5. Doxazosin 2 mg p.o. at bedtime. 6. Remeron 30 mg p.o. at bedtime. 7. Omeprazole 40 mg p.o. daily. 8. Zocor 20 mg p.o. at bedtime. 9. Coumadin 4 mg p.o. daily. FOLLOWUP: The patient will follow up with his primary care provider, Dr. Robbin San, within 7 days of discharge. SPECIAL INSTRUCTIONS: Repeat PT/INR within 48 hours of discharge. Goal INR 2 to 3. DIET: Coumadin prudent. ACTIVITY: Ad ar. CODE STATUS: Full. DISPOSITION: Home, 11/18/2017. Total time preparing and coordinating discharge, 31 minutes.
== END 2017-11-18 18:47 | disposition home or self-care (01) | DRG 872 ==
LOC: ERS 18:36 → T4-B 11-13 05:26
PROVIDERS: ADMIT Internal Medicine; ATTEND Internal Medicine
DX: A41.9 Sepsis, unspecified organism (principal); E87.1 Hypo-osmolality and hyponatremia; I82.501 Chronic embolism and thrombosis of unspecified deep veins of right lower extremity; E78.5 Hyperlipidemia, unspecified; I25.10 Atherosclerotic heart disease of native coronary artery without angina pectoris; I10 Essential (primary) hypertension; F41.9 Anxiety disorder, unspecified; F32.9 Major depressive disorder, single episode, unspecified; E83.30 Disorder of phosphorus metabolism, unspecified; I48.2 Chronic atrial fibrillation; Z91.81 History of falling; Z79.01 Long term (current) use of anticoagulants; Z85.46 Personal history of malignant neoplasm of prostate
CPT/HCPCS: 36415; 74177; 80048; 80053; 80202; 81003; 81015; 82553; 82977; 83605; 84484; 85014; 85018; 85025; 85610; 85730; 86850; 86900; 86901; 87040; 87086; 93005; 94760; 96361; 96365; 96367; 96375; A4216; G8978-GP-CK; G8979-GP-CJ; J2270; J2543; J3370; J7050; Q0162

== ENCOUNTER 2018-06-17 14:36 | Inpatient (IN) | payer MEDICARE, OTHER ==
[2018-06-17 16:11] LABS: #Monocytes 0.5 thou/uL (0.11-0.59); #Neutrophils 2.9 thou/uL (1.40-6.50); %Eosinophils 0.5 % (0.0-10.0); %Lymphocytes 22.2 % (21.0-51.0); %Monocytes 11.9 % (0.0-10.0); %Neutrophils 64.4 % (42.0-75.0); Hemoglobin 5.5 g/dL (14.0-18.0); Mean Corpuscular HGB CONC 31.1 g/dL (32.0-36.0); Mean Corpuscular Hemoglobin 31.3 pg (27.0-31.0); Mean Platelet Volume 6.3 fL (7.4-10.4); Platelet Count 274 thou/uL (130-400); RBC Distribution Width 21.4 % (11.5-14.5); Red Blood Cell (RBC) Count 1.76 mill/uL (4.70-6.10); White Blood Cell (WBC) Count 4.5 thou/uL (4.8-10.8)
[2018-06-17 16:34] LABS: ALT (SGPT) 8 U/L (8-55); AST (SGOT) 81 U/L (5-34); Albumin 3.6 g/dL (3.4-4.8); Alkaline Phosphatase 652 U/L (40-150); Anion Gap 14 mmol/L (10-20); BUN (Urea Nitrogen) 17 mg/dL (8.4-25.7); Bilirubin, Total 0.6 mg/dL (0.2-1.2); Calc. Creatinine Clearance 0 mL/min (70-130); Calcium 9.5 mg/dL (7.8-10.44); Carbon Dioxide 23 mmol/L (23-31); Chloride 100 mmol/L (98-107); Estimated GFR-MDRD 85; Globulin 3.8 g/dL (2.4-3.5); Glucose 103 mg/dL (83-110); Potassium 4.2 mmol/L (3.5-5.1); Protein, Total 7.4 g/dL (5.8-8.1); Sodium 133 mmol/L (136-145)
[2018-06-17 16:36] LABS: Troponin I Less than 0.010 ng/mL (< 0.028)
--- NOTE | 2018-06-17 16:41 | CT ---
CT OF BRAIN PERFORMED WITHOUT CONTRAST ENHANCEMENT: Date: 06/17/18 HISTORY: Head injury status post fall. COMPARISON: 07/12/11 exam. FINDINGS: There is mild ventricular and sulcal prominence. There is some decreased attenuation to the periventr icular white matter. There are no signs of intracerebral hemorrhage or extra-axial fluid collections. The mastoid air cells are clear. There is some moderate mucosal change within the maxillary sinuses. IMPRESSION: No acute intracranial abnormalities. POS: [facility]
[2018-06-17] MEDS ORDERED: Pantoprazole 40 MG VIAL ONE (17:19)
[2018-06-17 19:52] LABS: Troponin I Less than 0.010 ng/mL (< 0.028)
[2018-06-17] MEDS ORDERED: Ondansetron PF 4 MG/2 ML Vial IVP PRN (22:07)
[2018-06-17] MEDS ORDERED: Acetaminophen 325 MG TAB PO PRN (22:07)
[2018-06-17] MEDS ORDERED: Ondansetron ODT 4 MG TAB SL PRN (22:07)
[2018-06-17 22:22] LABS: Troponin I Less than 0.010 ng/mL (< 0.028)
--- NOTE | 2018-06-18 03:05 | HP ---
REASON FOR ADMISSION: Anemia, requiring blood transfusion. HISTORY OF PRESENT ILLNESS AND REVIEW OF SYSTEMS: Mr. Wilson is a 73-year-old man, who presented to the ED after having a fall from standing height and landing on his head with subsequent injury to his head, face, and left arm. He had no loss of consciousness. The patient reports that this was a mechanical fall due to slipping. He normally mobilizes with a walker. The patient underwent a CT of the head in the ED due to being on Eliquis for history of DVT and atrial fibrillation. The CT scan showed no acute changes. Laboratory studies, however, were notable for severe anemia with a hemoglobin of 5.5. The patient is known to have metastatic prostate cancer to the spine and states he undergoes treatment every 6 months. He is not undergoing any radiation therapy. He reports having generalized weakness with a complete lack of appetite for the last 5 to 6 weeks. He endorses significant weight loss. He states he simply does not have an appetite and therefore has stopped eating altogether. The patient denies having any symptoms as he has stopped eating altogether. He reports having chronic back pain. He denies having any fevers, chills, or sweats. Denies having any headaches or dizziness. Denies having any chest pain or palpitations. No cough or hemoptysis. He denies having any shortness of breath; however, he does feel very tired overall with generalized weakness. Denies any abdominal pain or cramping. No nausea or vomiting. Has not had any changes with his stools and denies having any urinary symptoms. All other review of systems are negative. PAST MEDICAL HISTORY: 1. Coronary artery disease. 2. Angina. 3. Atrial fibrillation. 4. History of DVTs in the bilateral lower extremities. 5. Hyperlipidemia. 6. Hypertension. 7. Metastatic prostate cancer to the spine and pelvis. PAST SURGICAL HISTORY: Status post IVC filter placement. SOCIAL HISTORY: The patient states he lives with his family. Denies any alcohol use or illicit drug use. He denies any tobacco use. ALLERGIES: CODEINE SULFATE CAUSES HIVES. CURRENT MEDICATIONS: 1. Simvastatin 20 mg p.o. daily. 2. Doxazosin 2 mg p.o. daily. 3. Omeprazole 40 mg p.o. daily. 4. Mirtazapine 30 mg p.o. at bedtime. 5. Alprazolam 0.25 mg t.i.d. 6. Eliquis 5 mg 2 times a day. PHYSICAL EXAMINATION: GENERAL: The patient appears very cachectic and frail. No acute distress. VITAL SIGNS: Temperature 98.1, pulse 82, respirations 20, O2 saturation 100% on room air, blood pressure 126/62. HEENT: Notable facial wasting. Normocephalic, atraumatic. Pupils are equal, round, and reactive to light. Sclerae are anicteric. Oropharynx is clear. NECK: Supple. Mucous membranes dry. LUNGS: Clear to auscultation. CARDIAC: Regular rate and rhythm. ABDOMEN: Soft, nontender, and nondistended. Normoactive bowel sounds present. EXTREMITIES: No edema or calf tenderness. SKIN: Without rash or jaundice. NEUROLOGICAL: Alert and oriented x3. Speech normal. LABORATORY DATA: White blood count 4.5, hemoglobin 5.5, hematocrit 17.7, platelets 274. Sodium 133, potassium 4.2, chloride 100, BUN 17, creatinine 1.04, GFR 85, total bilirubin 0.6, AST 81, ALT 8, alkaline phosphatase 652. Troponin I negative x3. Albumin 3.6. IMAGING DATA: CT of brain on 06/17/2018, no acute intracranial abnormalities. IMPRESSION AND PLAN: Mr. Eduardo Wilson is a 73-year-old man, being admitted for management of the following; 1. Severe anemia. Hemoglobin 5.5, undergoing transfusion with 2 units of packed red blood cells. We will repeat H and H after this 2nd unit. The patient denies any hematuria, melena, or hematochezia. Stool guaiac, brown stool was positive. We will hold Eliquis. 2. Head injury. CT head is unremarkable. 3. Back pain. The patient's back pain at baseline, likely due to spinal metastases. He states his pain is at baseline. 4. Metastatic prostate cancer. The patient states he is undergoing some sort of treatment every 6 months. He is not undergoing any radiation therapy. It is unclear what his goals for treatment are, but at this present time, he is indicated that he is a full code status, so he is not able to indicate who his surrogate decision maker is. We have placed a consult with palliative care. 5. He states he is unsure when his next oncology followup is. 6. Cachexia and general deconditioning. The patient states he has had complete loss of appetite for the last 5 to 6 weeks with subsequent weight loss. We will consult Nutrition. 7. Gastrointestinal prophylaxis. 8. Venous thromboembolism prophylaxis, mechanical sequential compression devices. 9. Full code status. The patient's case was discussed with Dr. Wong who agrees with plan of care as described above. Job ID: [id number]
[2018-06-18] MEDS: Sodium Chloride 0.9% 1,000 ML IV SCH ×2 (05:03→22:07)
[2018-06-18 06:11] LABS: Hemoglobin 7.4 g/dL (14.0-18.0); Hypochromia SLIGHT = 6-15 cells (100X) (0-5/hpf); Lymphocytes 15 % (21-51); MDiff Complete? YES; Mean Corpuscular HGB CONC 33.5 g/dL (32.0-36.0); Mean Corpuscular Hemoglobin 32.1 pg (27.0-31.0); Mean Corpuscular Volume 95.8 fL (78.0-98.0); Mean Platelet Volume 6.5 fL (7.4-10.4); Monocytes 6 % (0-10); Neutrophil 79 % (42-75); Platelet Count 182 thou/uL (130-400); Platelet Morphology Comment Appears Adequate; RBC Distribution Width 18.8 % (11.5-14.5)
[2018-06-18 06:12] LABS: ALT (SGPT) 7 U/L (8-55); AST (SGOT) 53 U/L (5-34); Alkaline Phosphatase 509 U/L (40-150); Anion Gap 13 mmol/L (10-20); BUN (Urea Nitrogen) 19 mg/dL (8.4-25.7); Bilirubin, Total 0.9 mg/dL (0.2-1.2); Calc. Creatinine Clearance 56 mL/min (70-130); Calcium 8.7 mg/dL (7.8-10.44); Carbon Dioxide 23 mmol/L (23-31); Chloride 101 mmol/L (98-107); Estimated GFR-MDRD Greater than 90; Globulin 3.1 g/dL (2.4-3.5); Glucose 99 mg/dL (83-110); Potassium 3.6 mmol/L (3.5-5.1); Protein, Total 6.1 g/dL (5.8-8.1); Sodium 133 mmol/L (136-145)
[2018-06-18] MEDS: ALPRAZolam 0.25 MG TAB PO SCH ×3 (11:09→22:03)
[2018-06-18] MEDS ORDERED: Pantoprazole 40 MG VIAL IVP SCH (11:15)
[2018-06-18] MEDS: Sodium Chloride 0.9% (PF) 10 ML VIAL FS PRN (11:24)
--- NOTE | 2018-06-18 16:42 | PDOC.PN ---
- Subjective Encounter Start Date: 06/18/18 Encounter Start Time: 09:00 Subjective: pt up in bed complains of some pain to his abdomen - Objective Vital Signs & Weight: Vital Signs (12 hours) Temp Pulse Pulse Pulse Resp BP BP 06/18/18 13:00 97.9 F 89 16 117/56 L 06/18/18 11:36 97.9 F 89 16 117/56 L 06/18/18 09:30 89 95 107/55 L 06/18/18 08:23 91 100 105/57 L 06/18/18 04:50 99.8 F H 88 20 BP BP Pulse Ox 06/18/18 13:00 06/18/18 11:36 06/18/18 09:30 116/58 L 06/18/18 08:23 105/57 L 06/18/18 04:50 121/62 100 Weight Admit Weight 108 lb 12.8 oz Weight 108 lb 12.8 oz I&O: 06/17/18 06/18/18 06/19/18 06:59 06:59 06:59 Intake Total 350 Output Total 175 150 Balance 175 -150 Result Diagrams: 06/18/18 05:05 06/18/18 05:05 Phys Exam - Physical Examination Respiratory: no wheezing, no rales, no rhonchi, wheezing present, clear to auscultation bilateral Cardiovascular: RRR, no significant murmur, no rub, gallop, irregular Gastrointestinal: soft, positive bowel sounds mild pain on palpation to epigastric area Musculoskeletal: no edema, pulses present, edema present Dx/Plan (1) Symptomatic anemia Code(s): D64.9 - ANEMIA, UNSPECIFIED Status: Acute (2) Afib Code(s): I48.91 - UNSPECIFIED ATRIAL FIBRILLATION Status: Acute Comment: Current SR, continue warfarin and coreg (3) Prostate cancer Code(s): C61 - MALIGNANT NEOPLASM OF PROSTATE Status: Acute (4) Protein-calorie malnutrition, moderate Code(s): E44.0 - MODERATE PROTEIN-CALORIE MALNUTRITION Status: Acute - Plan will place pt npo and start protonix. pt's low hh could be multifactoral -: will hold eliquis for now. gi to evaluate pt. pt has positve stool for -: guiac. palliative care to see pt for code status. * . Review of Systems - Review of Systems Cardiovascular: negative: chest pain, palpitations, orthopnea, paroxysmal nocturnal dyspnea, edema, light headedness, other Gastrointestinal: Abdominal Pain Genitourinary: negative: Dysuria, Frequency, Incontinence, Hematuria, Retention , Other Musculoskeletal: negative: Neck Pain, Shoulder Pain, Arm Pain, Back Pain, Hand Pain, Leg Pain, Foot Pain, Other - Medications/Allergies Allergies/Adverse Reactions: Allergies Allergy/AdvReac Type Severity Reaction Status Date / Time codeine Allergy Intermediate Hives Verified 06/18/18 06:44 Medications: Current Medications Alprazolam (Xanax) 0.25 mg PO TID [facility] Last Admin: 06/18/18 11:09 Dose: 0.25 mg Atorvastatin Calcium (Lipitor) 10 mg PO HS [facility] Doxazosin Mesylate (Cardura) 2 mg PO HS [facility] Sodium Chloride (Normal Saline 0.9%) 1,000 mls @ 55 mls/hr IV .[id number] [facility] Last Admin: 06/18/18 05:03 Dose: 1,000 mls Mirtazapine (Remeron) 30 mg PO HS [facility] Pantoprazole Sodium (Protonix) 40 mg IVP Q12HR [facility] Sodium Chloride (Flush - Normal Saline) 10 ml IVF Q12HR PRN PRN Reason: Saline Flush Sodium Chloride (Flush - Normal Saline) 10 ml IVF PRN PRN PRN Reason: Saline Flush Sodium Chloride (Normal Saline Pf) 10 ml FS PRN PRN PRN Reason: RECONSTITUTION Last Admin: 06/18/18 11:24 Dose: 10 ml
[2018-06-18] MEDS: Atorvastatin Calcium 10 MG TAB PO SCH (22:03)
[2018-06-18] MEDS: Doxazosin 2 MG TAB PO SCH (22:03)
[2018-06-18] MEDS: Mirtazapine 30 MG TAB PO SCH (22:03)
[2018-06-18] MEDS: Pantoprazole 40 MG VIAL IVP SCH (22:04)
--- NOTE | 2018-06-19 08:20 | CON ---
DATE OF CONSULTATION: 06/18/2018 REFERRING PHYSICIAN: Dr. Stephany Hill, [facility] Hospitalist. REASON FOR CONSULTATION: Abdominal pain, anemia, and occult GI bleeding. HISTORY OF PRESENT ILLNESS: Eduardo Wilson is a very fragile looking 73-year-old male, hospitalized after he had a fall at home. Initial CAT scan of the head is negative for any pathology. The patient was found to have anemia. The anemia is a very severe with hemoglobin around 4.4. He had been transfused with 2 units of packed RBCs. The patient denies any hematemesis, melena, or hematochezia. The patient had a colonoscopy 5 years ago at the [facility] in [place] as per the patient. The patient had seen me in 2012, when he came with anemia and melena. Subsequently, he was transferred to the [facility] in [place] for further workup, found to have bleeding ulcers at that time. The patient has had very poor appetite, not eating well and nibbles away. He tells me he lost about 17 to 20 pounds over the last, probably couple of months. The patient denies abdominal pain, denies any dysphagia or odynophagia. He states he has more of back pain and found to have abdominal pain, whatsoever. The patient states that he had not seen any black tarry stool or any bleeding in the stool. The patient has history of atrial fibrillation and is on Eliquis until yesterday. He has not had Eliquis today. He says he actually feels hungry, he wants to eat something today. MEDICAL ILLNESSES: 1. Coronary artery disease. 2. Atrial fibrillation. 3. Past history of DVTs many years ago. 4. Hyperlipidemia. 5. Hypertension. 6. Metastatic prostate cancer to the spine and pelvis. 7. Past history of bleeding ulcer. PAST SURGICAL HISTORY: Status post IVC filter placement. SOCIAL HISTORY: The patient does not smoke or drink alcohol. No history of drug use. ALLERGIES: CODEINE. MEDICATIONS: Medications at the time of admission include: 1. Simvastatin 20 once a day. 2. Doxazosin 2 mg once a day. 3. Omeprazole 40 once a day. 4. Mirtazapine 30 once a day. 5. Alprazolam 0.25 mg three times a day. 6. Eliquis 5 mg 2 times a day. REVIEW OF SYSTEMS: CONSTITUTIONAL: Anorexia, weight loss of 17-20 pounds over the last 2 months. No history of fever. Energy level is very poor, has easy fatigability and tiredness. RESPIRATORY: No history of chronic cough, hemoptysis, or dyspnea. CARDIOVASCULAR: No chest pain. No palpitation. No dyspnea, orthopnea, or PND. GI: No abdominal pain. No nausea or vomiting. No hematochezia or melena. : History of frequent urination . MUSCULOSKELETAL: History of back pain. ENDOCRINE: Not known. PHYSICAL EXAMINATION: GENERAL: He is a very fragile looking black male, he appears comfortable, he is very weak, does communicate a little. VITAL SIGNS: Pulse is 82 and blood pressure is 126/62. HEENT: Conjunctivae are clear. NECK: Supple. No adenitis or thyromegaly noted. CARDIOVASCULAR: First and second heart sounds heard. LUNGS: Clear to auscultation. ABDOMEN: Soft. Abdomen is nondistended. Abdomen is nontender. No organomegaly or masses. EXTREMITIES: No edema. CLINICAL IMPRESSION: 1. A 73-year-old black male, hospitalized after a fall at home. He has been on Eliquis because of atrial fibrillation, it is on hold for now. He has no abdominal pain and abdomen exam is benign. . Stool guaiac is positive . He tells me he has had colonoscopy 5 years ago in the [facility]. 2. Metastatic prostate cancer. 3. Atrial fibrillation. 4. Past history of bleeding ulcer. RECOMMENDATIONS: 1. Regular diet. 2. Followup H and H. 3. Transfuse p.r.n. 4. We cannot perform EGD or colonoscopy at the time being because he was on Eliquis until yesterday. He has been advised to undergo EGD. Hopefully, the EGD can be done over the weekend. Dr. Benitez will be revenue enforcement collection agent for me over the weekend and will probably perform EGD. Job ID: [id number]
[2018-06-19] MEDS: ALPRAZolam 0.25 MG TAB PO SCH ×3 (10:48→21:07)
[2018-06-19] MEDS: Sodium Chloride 0.9% (PF) 10 ML VIAL FS PRN ×2 (10:48→21:06)
[2018-06-19] MEDS: Pantoprazole 40 MG VIAL IVP SCH ×2 (10:48→21:06)
--- NOTE | 2018-06-19 12:04 | PDOC.PN ---
- Subjective Encounter Start Date: 06/19/18 Encounter Start Time: 07:50 -: old records requested/rev Patient seen and examined. No new complaints. No overnight events - Objective MAR Reviewed: Yes Vital Signs & Weight: Vital Signs (12 hours) Temp Pulse Resp BP BP Pulse Ox 06/19/18 08:00 99.1 F 92 16 132/65 91 L 06/19/18 04:08 101 H 137/70 Weight Admit Weight 108 lb 12.8 oz Weight 108 lb 12.8 oz I&O: 06/18/18 06/19/18 06/20/18 06:59 06:59 06:59 Intake Total 350 1595 Output Total 175 900 Balance 175 695 Result Diagrams: 06/18/18 05:05 06/18/18 05:05 EKG Reviewed by me: Yes Phys Exam - Physical Examination Constitutional: NAD HEENT: PERRLA, moist MMs, sclera anicteric Neck: no JVD, supple Respiratory: no wheezing, no rales, no rhonchi Cardiovascular: RRR, no significant murmur, no rub Gastrointestinal: soft, non-tender, no distention Musculoskeletal: no edema, pulses present Neurological: non-focal, normal sensation Lymphatic: no nodes Psychiatric: normal affect Skin: no rash, normal turgor Dx/Plan (1) GI bleed Code(s): K92.2 - GASTROINTESTINAL HEMORRHAGE, UNSPECIFIED Status: Acute (2) Symptomatic anemia Code(s): D64.9 - ANEMIA, UNSPECIFIED Status: Acute (3) Afib Code(s): I48.91 - UNSPECIFIED ATRIAL FIBRILLATION Status: Chronic Comment: (4) CAD (coronary artery disease) Code(s): I25.10 - ATHSCL HEART DISEASE OF [place] CORONARY ARTERY W/O ANG PCTRS Status: Chronic Comment: stable (5) Chronic anticoagulation Code(s): Z79.01 - RETIREMENT (CURRENT) USE OF ANTICOAGULANTS Status: Chronic Comment: on hold due to GI bleed (6) Dyslipidemia Code(s): E78.5 - HYPERLIPIDEMIA, UNSPECIFIED Status: Chronic (7) HTN (hypertension) Code(s): I10 - ESSENTIAL (PRIMARY) HYPERTENSION Status: Chronic Comment: (8) Prostate cancer metastatic to bone Code(s): C61 - MALIGNANT NEOPLASM OF PROSTATE; C79.51 - SECONDARY MALIGNANT NEOPLASM OF BONE Status: Chronic Comment: (9) Protein-calorie malnutrition, moderate Code(s): E44.0 - MODERATE PROTEIN-CALORIE MALNUTRITION Status: Chronic - Plan cont current plan of care * repeat labs tomorrow * medication reviewed as below * symptomatic treatment * transfer to medical * GI following. * change to inpt status Review of Systems - Review of Systems Respiratory: negative: Cough, Dry, Shortness of Breath, Hemoptysis, SOB with Excertion, Pleuritic Pain, Sputum, Wheezing Cardiovascular: negative: chest pain, palpitations, orthopnea, paroxysmal nocturnal dyspnea, edema, light headedness, other Gastrointestinal: negative: Nausea, Vomiting, Abdominal Pain, Diarrhea, Constipation, Melena, Hematochezia, Other Genitourinary: negative: Dysuria, Frequency, Incontinence, Hematuria, Retention , Other Musculoskeletal: negative: Neck Pain, Shoulder Pain, Arm Pain, Back Pain, Hand Pain, Leg Pain, Foot Pain, Other - Medications/Allergies Allergies/Adverse Reactions: Allergies Allergy/AdvReac Type Severity Reaction Status Date / Time codeine Allergy Intermediate Hives Verified 06/18/18 06:44 Medications: Current Medications Alprazolam (Xanax) 0.25 mg PO TID [facility] Last Admin: 06/19/18 10:48 Dose: 0.25 mg Atorvastatin Calcium (Lipitor) [address] [facility] Last Admin: 06/18/18 22:03 Dose: 10 mg Doxazosin Mesylate (Cardura) [address] [facility] Last Admin: 06/18/18 22:03 Dose: 2 mg Sodium Chloride (Normal Saline 0.9%) 1,000 mls @ 55 mls/hr IV .[id number] [facility] Last Admin: 06/18/18 22:07 Dose: 1,000 mls Mirtazapine (Remeron) [address] [facility] Last Admin: 06/18/18 22:03 Dose: 30 mg Pantoprazole Sodium (Protonix) 40 mg IVP Q12HR [facility] Last Admin: 06/19/18 10:48 Dose: 40 mg Sodium Chloride (Flush - Normal Saline) 10 ml IVF Q12HR PRN PRN Reason: Saline Flush Sodium Chloride (Flush - Normal Saline) 10 ml IVF PRN PRN PRN Reason: Saline Flush Sodium Chloride (Normal Saline Pf) 10 ml FS PRN PRN PRN Reason: RECONSTITUTION Last Admin: 06/19/18 10:48 Dose: 10 ml
[2018-06-19] MEDS: Sodium Chloride 0.9% 1,000 ML IV SCH (18:36)
[2018-06-19] MEDS: Mirtazapine 30 MG TAB PO SCH (21:06)
[2018-06-19] MEDS: Doxazosin 2 MG TAB PO SCH (21:07)
[2018-06-19] MEDS: Atorvastatin Calcium 10 MG TAB PO SCH (21:07)
[2018-06-20 05:24] LABS: #Lymphocytes 0.8 thou/uL (1.20-3.40); #Monocytes 0.4 thou/uL (0.11-0.59); #Neutrophils 1.6 thou/uL (1.40-6.50); %Eosinophils 1.3 % (0.0-10.0); %Lymphocytes 28.2 % (21.0-51.0); %Monocytes 14.2 % (0.0-10.0); %Neutrophils 56.2 % (42.0-75.0); Hemoglobin 6.7 g/dL (14.0-18.0); Mean Corpuscular HGB CONC 31.8 g/dL (32.0-36.0); Mean Corpuscular Hemoglobin 31.3 pg (27.0-31.0); Mean Corpuscular Volume 98.4 fL (78.0-98.0); Mean Platelet Volume 6.4 fL (7.4-10.4); Platelet Count 155 thou/uL (130-400); RBC Distribution Width 18.9 % (11.5-14.5); Red Blood Cell (RBC) Count 2.14 mill/uL (4.70-6.10); White Blood Cell (WBC) Count 2.8 thou/uL (4.8-10.8)
[2018-06-20 05:48] LABS: ALT (SGPT) Less than 7 U/L (8-55); AST (SGOT) 34 U/L (5-34); Albumin 2.7 g/dL (3.4-4.8); Alkaline Phosphatase 384 U/L (40-150); Anion Gap 10 mmol/L (10-20); BUN (Urea Nitrogen) 15 mg/dL (8.4-25.7); Bilirubin, Total 0.3 mg/dL (0.2-1.2); Calc. Creatinine Clearance 61 mL/min (70-130); Calcium 8.8 mg/dL (7.8-10.44); Carbon Dioxide 24 mmol/L (23-31); Chloride 105 mmol/L (98-107); Estimated GFR-MDRD Greater than 90; Globulin 2.9 g/dL (2.4-3.5); Glucose 104 mg/dL (83-110); Potassium 3.3 mmol/L (3.5-5.1); Protein, Total 5.6 g/dL (5.8-8.1); Sodium 136 mmol/L (136-145)
[2018-06-20] MEDS: Pantoprazole 40 MG VIAL IVP SCH (09:12)
[2018-06-20] MEDS: ALPRAZolam 0.25 MG TAB PO SCH ×3 (09:12→21:19)
--- NOTE | 2018-06-20 09:40 | PDOC.PN ---
- Subjective Encounter Start Date: 06/20/18 Encounter Start Time: 07:40 Patient seen and examined. No new complaints. No overnight events - Objective MAR Reviewed: Yes Vital Signs & Weight: Vital Signs (12 hours) Temp Pulse Pulse Resp BP BP Pulse Ox 06/20/18 09:08 97.9 F 94 18 135/68 99 06/20/18 08:53 97.8 F 91 18 148/72 H 100 06/20/18 04:00 99.2 F 98 18 122/59 L 99 Weight Admit Weight 108 lb 12.8 oz Weight 119 lb 12.8 oz I&O: 06/19/18 06/20/18 06/21/18 06:59 06:59 06:59 Intake Total 1595 940 0 Output Total 900 350 Balance 695 590 0 Result Diagrams: 06/20/18 04:35 06/20/18 04:35 Additional Labs: Accuchecks 06/19/18 20:29 POC Glucose 118 H EKG Reviewed by me: Yes Phys Exam - Physical Examination Constitutional: NAD cachectic HEENT: PERRLA, moist MMs, sclera anicteric Neck: no JVD, supple Respiratory: no wheezing, no rales, no rhonchi Cardiovascular: no significant murmur, no rub, irregular Gastrointestinal: soft, non-tender, no distention Musculoskeletal: no edema, pulses present Neurological: non-focal Lymphatic: no nodes Psychiatric: normal affect Skin: no rash, normal turgor Dx/Plan (1) GI bleed Code(s): K92.2 - GASTROINTESTINAL HEMORRHAGE, UNSPECIFIED Status: Acute (2) Symptomatic anemia Code(s): D64.9 - ANEMIA, UNSPECIFIED Status: Acute (3) Afib Code(s): I48.91 - UNSPECIFIED ATRIAL FIBRILLATION Status: Chronic Comment: (4) CAD (coronary artery disease) Code(s): I25.10 - ATHSCL HEART DISEASE OF [place] CORONARY ARTERY W/O ANG PCTRS Status: Chronic Comment: stable (5) Chronic anticoagulation Code(s): 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 Status: Chronic Comment: on hold due to GI bleed (6) Dyslipidemia Code(s): E78.5 - HYPERLIPIDEMIA, UNSPECIFIED Status: Chronic (7) HTN (hypertension) Code(s): I10 - ESSENTIAL (PRIMARY) HYPERTENSION Status: Chronic Comment: (8) Prostate cancer metastatic to bone Code(s): C61 - MALIGNANT NEOPLASM OF PROSTATE; C79.51 - SECONDARY MALIGNANT NEOPLASM OF BONE Status: Chronic Comment: (9) Protein-calorie malnutrition, moderate Code(s): E44.0 - MODERATE PROTEIN-CALORIE MALNUTRITION Status: Chronic - Plan cont current plan of care, social worker school * today transfuse 1 unit prbc for low Hb * GI following * procedure will defer to GI * on hold elliquis * medication reviewed as below * symptomatic treatment. Review of Systems - Review of Systems Other: not reliable due to his level of cognitive status - Medications/Allergies Allergies/Adverse Reactions: Allergies Allergy/AdvReac Type Severity Reaction Status Date / Time codeine Allergy Intermediate Hives Verified 06/18/18 06:44 Medications: Current Medications Alprazolam (Xanax) 0.25 mg PO TID [facility] Last Admin: 06/20/18 09:12 Dose: Not Given Atorvastatin Calcium (Lipitor) 10 mg PO HS [facility] Last Admin: 06/19/18 21:07 Dose: 10 mg Doxazosin Mesylate (Cardura) 2 mg PO HS [facility] Last Admin: 06/19/18 21:07 Dose: 2 mg Mirtazapine (Remeron) 30 mg PO HS [facility] Last Admin: 06/19/18 21:06 Dose: 30 mg Pantoprazole Sodium (Protonix) 40 mg IVP Q12HR [facility] Last Admin: 06/20/18 09:12 Dose: Not Given Sodium Chloride (Flush - Normal Saline) 10 ml IVF Q12HR PRN PRN Reason: Saline Flush Sodium Chloride (Flush - Normal Saline) 10 ml IVF PRN PRN PRN Reason: Saline Flush Sodium Chloride (Normal Saline Pf) 10 ml FS PRN PRN PRN Reason: RECONSTITUTION Last Admin: 06/19/18 21:06 Dose: 10 ml
[2018-06-20] MEDS ORDERED: Ketamine 50 MG/ML (10ML VIAL) ONE (11:39)
[2018-06-20] MEDS ORDERED: Ondansetron HCl/PF 4 MG/2 ML Vial IVP PRN (12:20)
[2018-06-20] MEDS ORDERED: Promethazine HCl 25 MG/ML VIAL SLOW IVP PRN (12:20)
[2018-06-20] MEDS ORDERED: Promethazine HCl 25 MG/ML VIAL IM PRN (12:20)
[2018-06-20] MEDS ORDERED: Promethazine HCl 25 MG/ML VIAL ONE (12:50)
[2018-06-20] MEDS: Mirtazapine 30 MG TAB PO SCH (21:19)
[2018-06-20] MEDS: Doxazosin 2 MG TAB PO SCH (21:19)
[2018-06-20] MEDS: Atorvastatin Calcium 10 MG TAB PO SCH (21:19)
--- NOTE | 2018-06-21 09:25 | PDOC.PN ---
- Subjective Encounter Start Date: 06/21/18 Encounter Start Time: 07:10 pt is resting, no family bedside, tried to call to update but no response Patient seen and examined. No overnight events - Objective MAR Reviewed: Yes Vital Signs & Weight: Vital Signs (12 hours) Temp Pulse Resp BP Pulse Ox 06/21/18 04:00 98.2 F 95 20 134/70 95 Weight Admit Weight 108 lb 12.8 oz Weight 113 lb 4 oz I&O: 06/20/18 06/21/18 06/22/18 06:59 06:59 06:59 Intake Total 940 1090 Output Total 350 725 Balance 590 365 Result Diagrams: 06/20/18 04:35 06/20/18 04:35 Phys Exam - Physical Examination Constitutional: NAD cachectic HEENT: PERRLA, sclera anicteric Neck: no JVD, supple Respiratory: no wheezing, no rales, no rhonchi Cardiovascular: RRR, no significant murmur, no rub Gastrointestinal: soft, non-tender, no distention Musculoskeletal: no edema, pulses present Neurological: non-focal Lymphatic: no nodes Psychiatric: normal affect Skin: no rash, normal turgor Dx/Plan (1) GI bleed Code(s): K92.2 - GASTROINTESTINAL HEMORRHAGE, UNSPECIFIED Status: Acute (2) Symptomatic anemia Code(s): D64.9 - ANEMIA, UNSPECIFIED Status: Acute (3) Afib Code(s): I48.91 - UNSPECIFIED ATRIAL FIBRILLATION Status: Chronic Comment: (4) CAD (coronary artery disease) Code(s): I25.10 - ATHSCL HEART DISEASE OF [place] CORONARY ARTERY W/O ANG PCTRS Status: Chronic Comment: stable (5) Chronic anticoagulation Code(s): Z79.01 - [place] (CURRENT) USE OF ANTICOAGULANTS Status: Chronic Comment: on hold due to GI bleed (6) Dyslipidemia Code(s): E78.5 - HYPERLIPIDEMIA, UNSPECIFIED Status: Chronic (7) HTN (hypertension) Code(s): I10 - ESSENTIAL (PRIMARY) HYPERTENSION Status: Chronic Comment: (8) Prostate cancer metastatic to bone Code(s): C61 - MALIGNANT NEOPLASM OF PROSTATE; C79.51 - SECONDARY MALIGNANT NEOPLASM OF BONE Status: Chronic Comment: (9) Protein-calorie malnutrition, moderate Code(s): E44.0 - MODERATE PROTEIN-CALORIE MALNUTRITION Status: Chronic - 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 Review of Systems - Review of Systems Other: not reliable with pt due to his cognitive status - Medications/Allergies Allergies/Adverse Reactions: Allergies Allergy/AdvReac Type Severity Reaction Status Date / Time codeine Allergy Intermediate Hives Verified 06/18/18 06:44 Medications: Current Medications Alprazolam (Xanax) 0.[address] [facility] Last Admin: 06/20/18 21:19 Dose: 0.25 mg Atorvastatin Calcium (Lipitor) [address] [facility] Last Admin: 06/20/18 21:19 Dose: 10 mg Doxazosin Mesylate (Cardura) [address] [facility] Last Admin: 06/20/18 21:19 Dose: 2 mg Mirtazapine (Remeron) [address] [facility] Last Admin: 06/20/18 21:19 Dose: 30 mg Pantoprazole Sodium (Protonix) 40 mg PO DAILY [facility] Sodium Chloride (Flush - Normal Saline) 10 ml IVF Q12HR PRN PRN Reason: Saline Flush Sodium Chloride (Flush - Normal Saline) 10 ml IVF PRN PRN PRN Reason: Saline Flush Sodium Chloride (Normal Saline Pf) 10 ml FS PRN PRN PRN Reason: RECONSTITUTION Last Admin: 06/19/18 21:06 Dose: 10 ml
[2018-06-21] MEDS: ALPRAZolam 0.25 MG TAB PO SCH ×3 (10:05→20:55)
[2018-06-21 10:47] LABS: #Eosinphils 0.1 thou/uL (0.0-0.7); #Lymphocytes 0.6 thou/uL (1.20-3.40); #Monocytes 0.3 thou/uL (0.11-0.59); #Neutrophils 1.6 thou/uL (1.40-6.50); %Basophils 0.5 % (0.0-1.0); %Eosinophils 2.5 % (0.0-10.0); %Lymphocytes 24.4 % (21.0-51.0); %Monocytes 12.6 % (0.0-10.0); Hemoglobin 8.5 g/dL (14.0-18.0); Mean Corpuscular HGB CONC 31.8 g/dL (32.0-36.0); Mean Corpuscular Hemoglobin 30.5 pg (27.0-31.0); Mean Corpuscular Volume 95.9 fL (78.0-98.0); Mean Platelet Volume 6.5 fL (7.4-10.4); Platelet Count 152 thou/uL (130-400); RBC Distribution Width 18.1 % (11.5-14.5); Red Blood Cell (RBC) Count 2.78 mill/uL (4.70-6.10); White Blood Cell (WBC) Count 2.6 thou/uL (4.8-10.8)
[2018-06-21 11:12] LABS: Anion Gap 10 mmol/L (10-20); BUN (Urea Nitrogen) 13 mg/dL (8.4-25.7); Calc. Creatinine Clearance 59 mL/min (70-130); Carbon Dioxide 24 mmol/L (23-31); Chloride 105 mmol/L (98-107); Estimated GFR-MDRD Greater than 90; Glucose 95 mg/dL (83-110); Iron 34 ug/dL (65-175); Iron Binding Capacity, Total 89 mcg/dL (261-462); Potassium 3.2 mmol/L (3.5-5.1); Sodium 136 mmol/L (136-145)
[2018-06-21 11:52] LABS: Folate (Folic Acid) 5.1 ng/mL (7.0-31.4)
[2018-06-21] MEDS ORDERED: Potassium Chloride 20 MEQ TAB PO SCH (14:30)
[2018-06-21] MEDS: Mirtazapine 30 MG TAB PO SCH (20:55)
[2018-06-21] MEDS: Atorvastatin Calcium 10 MG TAB PO SCH (20:55)
[2018-06-21] MEDS: Doxazosin 2 MG TAB PO SCH (20:55)
--- NOTE | 2018-06-22 08:22 | PRG ---
DATE OF SERVICE: 06/19/2018 SUBJECTIVE: This is a 73-year-old male, hospitalized after a fall at home. The patient bleeding. The patient was found to have anemia. There is no history of overt GI bleeding. The patient had a stool guaiac, which came back positive for occult blood. The patient has history of anorexia, satiety, and abdominal fullness, not able to eat. He has lost maybe 20 pounds. Denies abdominal pain. He has been transfused and his blood count is better. The hemoglobin was 5.5 and came to 7.4 after 2 units. Hematocrit 22.1. He still appears very weak. PHYSICAL EXAMINATION: GENERAL: Thin and malnourished. VITAL SIGNS: Temperature 99.1 degrees Fahrenheit, pulse is 92, blood pressure is 132/65. CARDIOVASCULAR: First and second heart sounds heard. LUNGS: Clear to auscultation. ABDOMEN: Soft. No organomegaly. No tenderness. No masses. I spoke to Mr. Wilson about having the EGD. He is agreeable. I will plan for EGD and will be done by Dr. Arnol Benitez tomorrow. Job ID: [id number]
[2018-06-22] MEDS: ALPRAZolam 0.25 MG TAB PO SCH ×3 (09:13→21:41)
[2018-06-22] MEDS: Folic Acid 1 MG TAB PO SCH (09:13)
--- NOTE | 2018-06-22 10:26 | OP ---
DATE OF PROCEDURE: 06/20/2018 PREPROCEDURE DIAGNOSES: 1. Past history of gastric ulcer. 2. Positive stool guaiac. 3. Anemia, multifactorial. 4. Anorexia. 5. Metastatic prostate cancer. POSTPROCEDURE DIAGNOSES: 1. Mild gastritis with no bleeding sites identified. 2. Mild duodenitis. No bleeding sites identified. 3. Normal esophagus and otherwise normal stomach. RECOMMENDATIONS: 1. PPI ulcer prophylaxis. 2. Advance diet as tolerated. ANESTHESIA: TIVA. PROCEDURE IN DETAIL: The patient was informed of the risks, benefits, and possible complications of endoscopy including perforation, reaction to medication and aspiration, informed consent was obtained. The patient brought to endoscopy suite where he was sedated in gradual fashion. Once he was comfortable, a bite block placed in the oropharynx. The endoscope was then advanced to the esophagus, stomach, second, and third portion of the duodenum and slowly removed. There was good visualization of mucosa. There was no evidence of active bleeding. There were a few small mild erythema in the antrum and in the duodenum, but no erosions or ulcers. There was normal distensibility of stomach in forward and retroflexed views. The stomach was normal. The esophagus was normal. The scope was removed. The patient tolerated the procedure well. There were no complications. Job ID: [id number]
--- NOTE | 2018-06-22 11:40 | PDOC.PN ---
- Subjective Encounter Start Date: 06/22/18 Encounter Start Time: 07:10 Patient seen and examined. No new complaints. No overnight events - Objective MAR Reviewed: Yes Vital Signs & Weight: Vital Signs (12 hours) Temp Pulse Resp BP Pulse Ox 06/22/18 08:00 98.0 F 102 H 17 144/67 H 99 06/22/18 04:00 98.6 F 99 15 137/71 99 Weight Admit Weight 108 lb 12.8 oz Weight 113 lb 4 oz I&O: 06/21/18 06/22/18 06/23/18 06:59 06:59 06:59 Intake Total 1090 1200 Output Total 725 600 Balance 365 600 Result Diagrams: 06/21/18 10:26 06/21/18 10:26 Phys Exam - Physical Examination Constitutional: NAD HEENT: PERRLA, moist MMs, sclera anicteric Neck: no JVD, supple Respiratory: no wheezing, no rales, no rhonchi Cardiovascular: RRR, no significant murmur, no rub Gastrointestinal: soft, non-tender, no distention, positive bowel sounds Musculoskeletal: no edema, pulses present Neurological: non-focal Lymphatic: no nodes Psychiatric: normal affect Skin: no rash, normal turgor Dx/Plan (1) GI bleed Code(s): K92.2 - GASTROINTESTINAL HEMORRHAGE, UNSPECIFIED Status: Acute (2) Symptomatic anemia Code(s): D64.9 - ANEMIA, UNSPECIFIED Status: Acute (3) Afib Code(s): I48.91 - UNSPECIFIED ATRIAL FIBRILLATION Status: Chronic Comment: (4) CAD (coronary artery disease) Code(s): I25.10 - ATHSCL HEART DISEASE OF [place] CORONARY ARTERY W/O ANG PCTRS Status: Chronic Comment: stable (5) Chronic anticoagulation Code(s): Z79.01 - 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 (CURRENT) USE OF ANTICOAGULANTS Status: Chronic Comment: on hold due to GI bleed (6) Dyslipidemia Code(s): E78.5 - HYPERLIPIDEMIA, UNSPECIFIED Status: Chronic (7) HTN (hypertension) Code(s): I10 - ESSENTIAL (PRIMARY) HYPERTENSION Status: Chronic Comment: (8) Prostate cancer metastatic to bone Code(s): C61 - MALIGNANT NEOPLASM OF PROSTATE; C79.51 - SECONDARY MALIGNANT NEOPLASM OF BONE Status: Chronic Comment: (9) Protein-calorie malnutrition, moderate Code(s): E44.0 - MODERATE PROTEIN-CALORIE MALNUTRITION Status: Chronic - Plan cont current plan of care, plan discussed w/ family, social work professor * will avoid any blood thinner on this pt as he is high risk for bleeding * spoke with , she does not want NH placement but wants hospice at home * case maker will be consulted * pt's prefer him to go home tomorrow * medication reviewed as below * symptomatic treatment. Review of Systems - Review of Systems Other: not reliable due to his cognitive status - Medications/Allergies Allergies/Adverse Reactions: Allergies Allergy/AdvReac Type Severity Reaction Status Date / Time codeine Allergy Intermediate Hives Verified 06/18/18 06:44 Medications: Current Medications Alprazolam (Xanax) 0.25 mg PO TID [facility] Last Admin: 06/22/18 09:13 Dose: 0.25 mg Atorvastatin Calcium (Lipitor) 10 mg PO HS [facility] Last Admin: 06/21/18 20:55 Dose: 10 mg Doxazosin Mesylate (Cardura) 2 mg PO HS [facility] Last Admin: 06/21/18 20:55 Dose: 2 mg Folic Acid (Folvite) 1 mg PO DAILY [facility] Last Admin: 06/22/18 09:13 Dose: 1 mg Mirtazapine (Remeron) 30 mg PO HS [facility] Last Admin: 06/21/18 20:55 Dose: 30 mg Pantoprazole Sodium (Protonix) 40 mg PO DAILY [facility] Last Admin: 06/22/18 09:13 Dose: 40 mg Sodium Chloride (Flush - Normal Saline) 10 ml IVF Q12HR PRN PRN Reason: Saline Flush Sodium Chloride (Flush - Normal Saline) 10 ml IVF PRN PRN PRN Reason: Saline Flush Sodium Chloride (Normal Saline Pf) 10 ml FS PRN PRN PRN Reason: RECONSTITUTION Last Admin: 06/19/18 21:06 Dose: 10 ml
[2018-06-22 13:57] VITALS: BMI 16.7
[2018-06-22] MEDS: Acetaminophen 325 MG TAB PO PRN (21:41)
[2018-06-22] MEDS: Atorvastatin Calcium 10 MG TAB PO SCH (21:42)
[2018-06-22] MEDS: Mirtazapine 30 MG TAB PO SCH (21:42)
[2018-06-22] MEDS: Doxazosin 2 MG TAB PO SCH (21:42)
[2018-06-23] MEDS: ALPRAZolam 0.25 MG TAB PO SCH (09:46)
[2018-06-23] MEDS: Acetaminophen 325 MG TAB PO PRN (09:46)
[2018-06-23] MEDS: Folic Acid 1 MG TAB PO SCH (09:46)
[2018-06-23 10:00] VITALS: BP 137/68; TEMP 98.7
--- NOTE | 2018-06-23 10:57 | PDOC.PN ---
- Subjective Encounter Start Date: 06/23/18 Encounter Start Time: 10:35 Patient seen and examined. No new complaints. No overnight events - Objective MAR Reviewed: Yes Vital Signs & Weight: Vital Signs (12 hours) Temp Pulse Resp BP Pulse Ox 06/23/18 08:00 98.7 F 100 16 137/68 98 06/23/18 03:54 96.6 F L 105 H 18 126/70 100 Weight Admit Weight 108 lb 12.8 oz Weight 108 lb 9 oz I&O: 06/22/18 06/23/18 06/24/18 06:59 06:59 06:59 Intake Total 1200 680 Output Total 600 600 Balance 600 80 Result Diagrams: 06/21/18 10:26 06/21/18 10:26 Phys Exam - Physical Examination Constitutional: NAD HEENT: PERRLA, moist MMs, sclera anicteric Neck: no JVD, supple Respiratory: no wheezing, no rales, no rhonchi Cardiovascular: RRR, no significant murmur, no rub Gastrointestinal: soft, non-tender, no distention Musculoskeletal: no edema, pulses present Neurological: non-focal Psychiatric: normal affect Skin: no rash, normal turgor Dx/Plan (1) GI bleed Code(s): K92.2 - GASTROINTESTINAL HEMORRHAGE, UNSPECIFIED Status: Acute (2) Symptomatic anemia Code(s): D64.9 - ANEMIA, UNSPECIFIED Status: Acute (3) Afib Code(s): I48.91 - UNSPECIFIED ATRIAL FIBRILLATION Status: Chronic Comment: (4) CAD (coronary artery disease) Code(s): I25.10 - ATHSCL HEART DISEASE OF [place] CORONARY ARTERY W/O ANG PCTRS Status: Chronic Comment: stable (5) Chronic anticoagulation Code(s): 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 OF ANTICOAGULANTS Status: Chronic Comment: on hold due to GI bleed (6) Dyslipidemia Code(s): E78.5 - HYPERLIPIDEMIA, UNSPECIFIED Status: Chronic (7) HTN (hypertension) Code(s): I10 - ESSENTIAL (PRIMARY) HYPERTENSION Status: Chronic Comment: (8) Prostate cancer metastatic to bone Code(s): C61 - MALIGNANT NEOPLASM OF PROSTATE; C79.51 - SECONDARY MALIGNANT NEOPLASM OF BONE Status: Chronic Comment: (9) Protein-calorie malnutrition, moderate Code(s): E44.0 - MODERATE PROTEIN-CALORIE MALNUTRITION Status: Chronic - Plan cont current plan of care * medication reviewed as below * symptomatic treatment * see my discharge kia. Review of Systems - Review of Systems ENT: negative: Ear Pain, Ear Discharge, Nose Pain, Nose Discharge, Nose Congestion, Mouth Pain, Mouth Swelling, Throat Pain, Throat Swelling, Other Respiratory: negative: Cough, Dry, Shortness of Breath, Hemoptysis, SOB with Excertion, Pleuritic Pain, Sputum, Wheezing Cardiovascular: negative: chest pain, palpitations, orthopnea, paroxysmal nocturnal dyspnea, edema, light headedness, other Gastrointestinal: negative: Nausea, Vomiting, Abdominal Pain, Diarrhea, Constipation, Melena, Hematochezia, Other Genitourinary: negative: Dysuria, Frequency, Incontinence, Hematuria, Retention , Other Musculoskeletal: negative: Neck Pain, Shoulder Pain, Arm Pain, Back Pain, Hand Pain, Leg Pain, Foot Pain, Other - Medications/Allergies Allergies/Adverse Reactions: Allergies Allergy/AdvReac Type Severity Reaction Status Date / Time codeine Allergy Intermediate Hives Verified 06/18/18 06:44 Medications: Current Medications Acetaminophen (Tylenol) 650 mg PO Q6H PRN PRN Reason: Headache Last Admin: 06/23/18 09:46 Dose: 650 mg Alprazolam (Xanax) 0.25 mg PO TID [facility] Last Admin: 06/23/18 09:46 Dose: 0.25 mg Atorvastatin Calcium (Lipitor) 10 mg PO HS [facility] Last Admin: 06/22/18 21:42 Dose: 10 mg Doxazosin Mesylate (Cardura) 2 mg PO HS [facility] Last Admin: 06/22/18 21:42 Dose: 2 mg Folic Acid (Folvite) 1 mg PO DAILY [facility] Last Admin: 06/23/18 09:46 Dose: 1 mg Mirtazapine (Remeron) 30 mg PO HS [facility] Last Admin: 06/22/18 21:42 Dose: 30 mg Pantoprazole Sodium (Protonix) 40 mg PO DAILY [facility] Last Admin: 06/23/18 09:46 Dose: 40 mg Sodium Chloride (Flush - Normal Saline) 10 ml IVF Q12HR PRN PRN Reason: Saline Flush Sodium Chloride (Flush - Normal Saline) 10 ml IVF PRN PRN PRN Reason: Saline Flush Sodium Chloride (Normal Saline Pf) 10 ml FS PRN PRN PRN Reason: RECONSTITUTION Last Admin: 06/19/18 21:06 Dose: 10 ml
--- NOTE | 2018-06-23 11:04 | DIS ---
DATE OF ADMISSION: 06/17/2018 DATE OF DISCHARGE: 06/23/2018 PRIMARY CARE PHYSICIAN: Dr. Robbin San. DISCHARGE DISPOSITION: Home with Home Hospice. PRIMARY DISCHARGE DIAGNOSES: 1. Gastrointestinal bleed. 2. Symptomatic anemia. SECONDARY DISCHARGE DIAGNOSES: 1. [id number] protein calorie malnutrition. 2. Metastatic prostate cancer. 3. Hypertension. 4. Dyslipidemia. 5. Chronic anticoagulation. 6. Coronary artery disease. 7. Chronic atrial fibrillation. PRIMARY PROCEDURE/OPERATION: Upper endoscopy was performed, which showed mild gastritis and duodenitis. RADIOLOGICAL INVESTIGATION: CT of brain was negative. SIGNIFICANT LABORATORY DATA: WBC 2.6, hemoglobin 8.5, platelets 152. Sodium 136, potassium 3.2, BUN 13, creatinine 0.84, folic acid 5.10. DISCHARGE MEDICATIONS: 1. Xanax 0.25 mg p.o. t.i.d. 2. Doxazosin 2 mg p.o. at bedtime. 3. Remeron 30 mg p.o. at bedtime. 4. Omeprazole 40 mg daily. 5. Zocor 20 mg p.o. at bedtime. 6. Vitamin B12 of 1000 mcg p.o. daily. 7. Ferrous sulfate 325 mg p.o. daily. 8. Folic acid 1 mg p.o. daily. 9. Multivitamin 1 tablet daily. 10. MiraLAX 17 g p.o. daily. CONTRAINDICATION: The patient is not a good candidate for chronic anticoagulation therapy in view of chronic atrial fibrillation because of GI bleed and poor functioning. CODE STATUS: DNR. INPATIENT JOB PRESS OPERATOR: Paint Supervisor team was consulted while in hospital. TEST RESULT PENDING ON DISCHARGE: None. ALLERGIES: CODEINE. DISCHARGE PLAN: Posthospital, the patient is planned for discharge to home with Home Hospice. HOSPITAL COURSE: A 73-year-old male who was admitted by Kanika Mcgowan, please see her H and P for further details. The patient was having GI bleed on admission. He was on chronic anticoagulation with Eliquis at home. Eliquis was discontinued. During this admission, his hemoglobin was initially 5.5. We transfused him total 3 units of blood and his hemoglobin subsequently remained stable without any further drop. By the time of discharge, his hemoglobin is 8.5. This patient had upper endoscopy, which was just showing gastritis and duodenitis. We discontinued Eliquis therapy and we stopped it permanently because the patient's functioning is very poor and he is not a good candidate for chronic long-term anticoagulation therapy with atrial fibrillation. This patient has advanced metastatic prostate cancer with severely poor malnutrition status and that is why we discussed goal of care with the patient's and the patient, and Hospice team was consulted. Family member decided to let him go home with Home Hospice. They do not want him to go to any kind of placement or any facility. At this point, the patient is medically stable. The patient is seen and examined at bedside today. PHYSICAL EXAMINATION: VITAL SIGNS: Currently, temperature 98.7, pulse 100, respiratory rate 16, saturation 98% on room air, blood pressure 137/68. Weight 108 pounds. GENERAL: The patient is currently alert, awake, follows command. No obvious acute distress. HEAD: Normocephalic, atraumatic. LUNGS: Clear without any rhonchi or rales. CARDIAC: S1, S2. Regular without any murmur. ABDOMEN: Soft and benign. EXTREMITIES: No edema. NEUROLOGIC: Nonfocal examination. Overall, the patient is stable for discharge today. Paperwork for discharge done, and out of hospital DNR paperwork will be done before discharge. Job ID: [id number]
--- NOTE | 2018-06-25 15:38 | PQF ---
MART BONNER, CALE PATEL MD [id number] CLINICAL DOCUMENTATION CLARIFICATION FORM: POST DISCHARGE Addendum to original discharge summary date: ____ Late entry note date: __ Date: 06/25/2018 ATTN: Dr. Jacob Please exercise your independent, professional judgment in responding to the clarification form. Clinical indicators are provided on the bottom of this form for your review Please check appropriate box(s): [ x ] Protein Calorie Malnutrition: [ ] Mild [ x ] Moderate [ ] Severe [ ] Other Malnutrition (please specify) __ [ ] Underweight without malnutrition [ ] Cachexia [ ] Other diagnosis [ ] Unable to determine In addition, please specify: Present on Admission (POA): [ x] Yes [ ] No [ ] Unable to determine CLINICAL INDICATORS - SIGNS / SYMPTOMS / LABS: DC Summary- Dr. Jacob Moderate to severe protein calorie malnutrition BMI of 17.6 H&P- Dr. Mcgowan Cachetic, facial wasting Loss of appetite for the last 5 to 6 weeks with subsequent weight loss Consult- Dr. Rust Anorexia, weight loss 17-20 pounds over the last 2 months. Energy level poor PN- Dr. Rust History of anorexia,satiety, abdominalm fullness, not able to eat. Lost maybe 20 pounds Thins and malnourished RISK FACTORS: Change in appetite Metastatic prostate cancer, to spine and pelvis TREATMENT: Nutrition consult, Diet Moderate Malnutrition (in acute illness) Energy Intake: <75% of estimated energy requirement for > 7 days Weight Loss: 1-2%/1 week; 5%/ 1 month; 7.5%/3 months Other: mild body fat loss; mild muscle mass loss; mild fluid accumulation; Severe Malnutrition (in acute illness) Energy Intake: < 50% of estimated energy requirement for > 5 days Weight Loss: >1-2%/1 week; >5%/1 month; >7.5%/3 months Other: moderate body fat loss; moderate muscle mass loss; moderate- severe fluid accumulation; 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 Moderate Malnutrition (in chronic illness) Energy Intake: <75% of estimated energy requirement for >1 month Weight Loss: 5%/1 month; 7.5%/3 months; 10%/6 months; 20%/1 year Other: mild body fat loss; mild muscle mass loss; mild fluid accumulation Severe Malnutrition (in chronic illness) Energy Intake: <75% of estimated energy requirement for >1 month Weight Loss: >5%/1 month; >7.5%/3 months; >10%/6 months; >20%/1 year Other: severe body fat loss; severe muscle mass loss; severe fluid accumulation ; 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 All Rights Reserved Jerson [email or web address] [phone] MTDD
== END 2018-06-23 15:10 | disposition hospice, home (50) | DRG 722 ==
LOC: ERS 14:36 → OBSVTOIN 21:42 → 2NO 21:42
PROVIDERS: ADMIT Emergency Medicine; ATTEND Emergency Medicine
PROC: 30233N1 Transfusion of Nonautologous Red Blood Cells into Peripheral Vein, Percutaneous Approach (ICD-10-PCS; principal; 2018-06-18)
PROC: 0DJ08ZZ Inspection of Upper Intestinal Tract, Via Natural or Artificial Opening Endoscopic (ICD-10-PCS; 2018-06-20)
DX: C61 Malignant neoplasm of prostate (principal); K29.71 Gastritis, unspecified, with bleeding; K29.81 Duodenitis with bleeding; C79.51 Secondary malignant neoplasm of bone; E44.0 Moderate protein-calorie malnutrition; Z68.1 Body mass index [BMI] 19.9 or less, adult; D64.9 Anemia, unspecified; I48.2 Chronic atrial fibrillation; Z79.01 Long term (current) use of anticoagulants; E78.5 Hyperlipidemia, unspecified; I10 Essential (primary) hypertension; I48.0 Paroxysmal atrial fibrillation; Z86.718 Personal history of other venous thrombosis and embolism; Z91.81 History of falling; Z86.711 Personal history of pulmonary embolism; I25.119 Atherosclerotic heart disease of native coronary artery with unspecified angina pectoris; S09.90XA Unspecified injury of head, initial encounter; Z66 Do not resuscitate
CPT/HCPCS: 36415; 36416; 36430; 70450; 80048; 80053; 82274; 82607; 82728; 82746; 83540; 83550; 84484; 85025; 86850; 86900; 86901; 93005; 94760; 96374; C9113; J2550; P9016